=== PATIENT | female | born 1935 | race Caucasian/White ===

== ENCOUNTER 2020-08-05 10:51 | Outpatient (REF) | payer MEDICARE, OTHER, SELFPAY ==
[2020-08-05 14:01] LABS: Hemoglobin 14.9 g/dl (12.0-16.0); Mean Corpuscular HGB Conc 33.1 g/dl (31.0-35.0); Mean Corpuscular Hemoglobin 30.2 pg (27.0-33.0); Mean Corpuscular Volume 91.1 fL (80-98); Mean Platelet Volume 10.3 fL (9.4-12.3); Platelet Count 217 X10*3/uL (160-400); Red Blood Count 4.94 X10*6/uL (4.20-5.50); Red Cell Distribution Width 13.2 % (11.0-16.0); White Blood Count 7.8 X10*3/uL (4.8-10.8)
[2020-08-05 15:05] LABS: Alanine Aminotransferase 22 U/L (0-31); Albumin Level 4.2 g/dL (3.5-5.0); Alkaline Phosphatase 102 U/L (39-117); Anion Gap 14 (12-20); Aspartate Amino Transferase 25 U/L (5-31); Blood Urea Nitrogen 13 mg/dL (9-16); Calcium 9.1 mg/dL (8.4-10.2); Carbon Dioxide 29 mmol/L (22-29); Chloride 99 mmol/L (96-108); Cholesterol 155 mg/dL; Estimated Glomerular Filt Rate > 60; Glucose Fasting 81 mg/dL (60-99); HDL Cholesterol 66 mg/dL; LDL Cholesterol Calculated 80 mg/dl; Potassium 4.4 mmol/L (3.3-5.1); Sodium 138 mmol/L (135-145); Total Protein 6.7 g/dL (6.5-8.0); Triglycerides 45 mg/dL
[2020-08-05 15:25] LABS: TSH reflex Free T4 1.23 uIU/mL (0.32-4.0)
== END 2020-08-05 10:52 | disposition home or self-care (01) ==
LOC: HO.HMGCLDS 10:51
PROVIDERS: PCP Internal Medicine; Visit Provider Internal Medicine
DX: E78.5 Hyperlipidemia, unspecified (principal); I10 Essential (primary) hypertension
CPT/HCPCS: 36415; 80053; 80061; 84443; 85027

== ENCOUNTER → 2021-01-15 14:36 | Outpatient (BNVA) | payer MEDICARE, OTHER, SELFPAY | PROVIDERS: PCP Internal Medicine; Referring Provider Internal Medicine; Visit Provider Surgery | DX: H61.92 Disorder of left external ear, unspecified (principal) | CPT/HCPCS: Q3014 ==

== ENCOUNTER 2021-02-12 09:23 | Outpatient (REF) | payer MEDICARE, OTHER, SELFPAY ==
[2021-02-12 12:04] LABS: Alanine Aminotransferase 19 U/L (0-31); Albumin Level 4.2 g/dL (3.5-5.0); Alkaline Phosphatase 107 U/L (39-117); Anion Gap 12 (12-20); Aspartate Amino Transferase 22 U/L (5-31); Bilirubin Total 0.6 mg/dL (0.0-1.0); Blood Urea Nitrogen 13 mg/dL (9-16); Calcium 9.8 mg/dL (8.4-10.2); Carbon Dioxide 31 mmol/L (22-29); Chloride 98 mmol/L (96-108); Estimated Glomerular Filt Rate > 60; Glucose Random 78 mg/dL (60-115); Potassium 3.9 mmol/L (3.3-5.1); Sodium 137 mmol/L (135-145); Total Protein 6.7 g/dL (6.5-8.0)
== END 2021-02-12 09:24 | disposition home or self-care (01) ==
LOC: HO.HMGCLDS 09:23
PROVIDERS: PCP Internal Medicine; Visit Provider Internal Medicine
DX: E78.5 Hyperlipidemia, unspecified (principal); I10 Essential (primary) hypertension
CPT/HCPCS: 36415; 80053

== ENCOUNTER 2021-02-20 12:38 | Outpatient (REF) | payer MEDICARE, OTHER, SELFPAY ==
[2021-02-20 13:38] VITALS: BP 136/72; PULSE 64; RESP 16; TEMP 36.6; O2SAT 98; BMI 29.2
[2021-02-20 14:00] VITALS: BP 147/62; PULSE 62; RESP 16; O2SAT 98
--- NOTE | 2021-02-20 14:00 | P.OP_ITS ---
Operative Note Operative Note Date of Service: 02/20/21 Narrative: Preop diagnosis: Skin lesion, left earlobe Postop diagnosis: Skin lesion, left earlobe Procedure: Excision of skin lesion, left earlobe under local anesthesia Surgeon: Reinaldo Flowers MD Senior Government Program Analyst: SIVAN Farias student The patient is a 85-year-old female with skin lesion on the left earlobe measuring about 0.6 cm in size, ulcerating, with irregular borders. She wanted proceed with excision. She understood the technique of excision under local anesthesia and was aware of the risks, benefits, and alternatives. She was brought to the minor procedure room and placed supine with the head turned to the right expose the left earlobe. The area of the skin lesion in the left earlobe was prepped and draped. Lidocaine 1% was used for local anesthesia. An elliptical incision was made in the skin surrounding the skin lesion using blade 15. We made sure that there were margins of grossly normal appearing skin around this. This incision was deepened through the entire thickness of the skin all the way to part of the subcutaneous layer to excise this entire lesion. This was sent as specimen. The incision closed with full- thickness nylon 5 0 interrupted sutures. Steri-Strips were applied The patient tolerated procedure well. There were no complications noted. Estimated blood loss was less than 1 cc. The patient was given discharge instructions and will be seen in the office for follow-up for removal sutures.
== END 2021-02-20 12:39 | disposition home or self-care (01) ==
LOC: HO.MS 12:38
PROVIDERS: PCP Internal Medicine; Visit Provider Surgery
PROC: (CPT 11642; principal; 2021-02-20 13:00)
DX: C44.229 Squamous cell carcinoma of skin of left ear and external auricular canal (principal); I10 Essential (primary) hypertension; E78.5 Hyperlipidemia, unspecified; I25.119 Atherosclerotic heart disease of native coronary artery with unspecified angina pectoris; Z98.61 Coronary angioplasty status; Z79.82 Long term (current) use of aspirin; Z79.899 Other long term (current) drug therapy; Z88.0 Allergy status to penicillin
CPT/HCPCS: 11642; 88305; 88342

== ENCOUNTER → 2021-03-03 09:43 | Outpatient (BNVA) | payer MEDICARE, OTHER, SELFPAY | PROVIDERS: PCP Internal Medicine; Referring Provider Internal Medicine; Visit Provider Surgery | DX: Z48.3 Aftercare following surgery for neoplasm (principal); C44.221 Squamous cell carcinoma of skin of unspecified ear and external auricular canal | CPT/HCPCS: 99212 ==

== ENCOUNTER 2022-12-15 08:35 | Outpatient (AMB) | payer MEDICARE, OTHER, SELFPAY ==
--- NOTE | 2022-12-15 08:41 | MHC.PC.OV ---
Vital Signs 12/15/22 08:43 Height 5 ft Weight 145 lb BMI 28.3 BP 130/64 Blood Pressure Location Lt brachial Position Sitting Pulse 62 Pulse Source Pulse Oximeter Pulse Oximetry (%) 95 Oxygen Delivery Method Room Air Intake Visit Reasons: medication Follow Up Intake Note: Pt is here today for a follow up visit. Pt's daughter states that pt has problem with memory. Allergies lisinopril [Zestril] Allergy (Unknown, Verified 12/15/22 08:45) pt does not remember it was 20 years ago Codeine Allergy (Unknown, Uncoded 12/15/22 08:45) pt does not remember Medication List - Last Reconciled 12/15/22 by Yary Whitlock MD aspirin 81 mg PO DAILY atorvastatin 80 mg PO DAILY donepezil 5 mg PO BEDTIME isosorbide dinitrate 30 mg PO ONCE metoprolol succinate ER 100 mg PO DAILY nitroglycerin 0.4 mg sublingual Q5M PRN olmesartan-hydrochlorothiazide 40-25 mg 1 tab PO DAILY Tobacco use date assessed: 12/15/22 Fall risk assessment: No Falls in past year Last assessed Fall Risk: 12/15/22 Dental Screening Dental Screen Date: 12/15/22 Did you have a dental visit in the last 12 months?: No Did you have a dental problem in the last 6 months where you did not have access to dental care?: No Was dental information given to patient?: Patient declined HPI medication Follow Up HPI Details Patient presents for the follow-up on hypertension hyperlipidemia mild dementia. Patient's in August. She lives with her son and granddaughter but is independent , preparing her meals and cleaning the house. 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 Mother No problems noted. Sister No problems noted. Social History Housing: House Alcohol intake: never Patient Tobacco Use Status: Never used Tobacco e-Cigarette/Vaping Use: Never Used Current occupational status: retired Cognitive needs: No Hearing needs: No Vision needs: Yes Questionnaire PHQ-9 Over the last 2 weeks, how often have you been bothered by any of the following problems? 1. Little interest or pleasure in doing things: not at all 2. Feeling down, depressed, or hopeless: not at all 3. Trouble falling or staying asleep, or sleeping too much: nearly every day 4. Feeling tired or having little energy: more than half the days 5. Poor appetite or overeating: not at all 6. Feeling bad about yourself - or that you are a failure or have let yourself or your family down: not at all 7. Trouble concentrating on things, such as reading the newspaper or watching television: not at all 8. Moving or speaking so slowly that other people could have noticed. Or the opposite - being so fidgety or restless that you have been moving around a lot more than usual: not at all 9. Thoughts that you would be better off or of hurting yourself in some way: not at all Total score: 5 Depression Screening Interpretation: Negative Source: Developed by Drs. Reece Argueta, Jennifer Davis, Lee Mcmillan and colleagues, with an educational amberly from [employer]. Thrive Questionnaire Date Thrive assessed: 12/15/22 I am a: Patient What is your living situation today?: I have a steady place to live Within the past 12 months, did the food you bought not last and you didn't have the money to get more?: Never true Within the past 12 months, did you worry whether your food would run out before you got money to buy more?: Never true Do you have trouble paying for medicines?: No Do you have trouble getting transportation to medical appointments?: No Do you have trouble paying your heating and electricity bill?: No Do you have trouble taking care of your child, family member or friend?: No Do you have trouble with day-to-day activities such as bathing, preparing meals, shopping, managing finances, etc.?: No Are you currently unemployed and looking for a job?: No Are you interested in more education?: No Please select the resources that you would like help with: None Currently or been in a relationship where the following occur: no concerns reported AUDIT C Alcohol Use Questionnaire (AUDIT-C) 1. How often do you have a drink containing alcohol?: Never 3. How often do you have six or more drinks on one occasion?: Never Total Score: 0 GRAHAM-7 AMB Questionnaire GRAHAM-7 Date GRAHAM - 7 assessed: 12/15/22 Feeling nervous, anxious, or on edge: 0 = Not at all Not being able to stop or control worryin = Not at all Worrying too much about different things: 0 = Not at all Trouble relaxin = Not at all Being so restless that it is hard to sit still: 0 = Not at all Becoming easily annoyed or irritable: 0 = Not at all Feeling afraid as if something awful might happen: 0 = Not at all Total GRAHAM-7 score (0-4 normal; 5-9 mild; 10-14 moderate; 15-21 severe): 0 Source: Developed by Drs. Reece Argueta, Jennifer Davis, Lee Mcmillan and colleagues, with an educational amberly from [employer]. Review of Systems Const All systems reviewed & are unremarkable except as noted in HPI and below Reports no additional complaints Eyes Reports no additional complaints ENT Reports no additional complaints Card Reports no additional complaints Resp Reports no additional complaints GI Reports no additional complaints Reports no additional complaints Physical exam (Primary Care) Vital Signs: Last Vital Signs Pulse 62 12/15/22 08:43 BP 130/64 12/15/22 08:43 Pulse Ox 95 12/15/22 08:43 Oxygen Delivery Method Room Air 12/15/22 08:43 BMI result Body Mass Index 28.3 Tobacco/Smoking Status: Tobacco use Status Tobacco use date assessed 12/15/22 12/15/22 08:50 Patient Tobacco Use Status Never used Tobacco 12/15/22 08:50 e-Cigarette/Vaping Use Never Used 12/15/22 08:42 PHQ-9: PHQ-9 Score PHQ-9: Total score 5 12/15/22 08:50 Depression Screening Interpretation: Negative Thrive Assessment: Date of Thrive Assessment Date Thrive assessed 12/15/22 12/15/22 08:50 Currently or been in a relationship where the following occur: no concerns reported Const General: no acute distress [facility] General nose exam: Normal external nose present Eyes General: appearance normal, both eyes and all related structures Neck Neck: Yes no lymphadenopathy and Yes supple Resp Effort & Inspection: normal respiratory effort Auscultation: clear to auscultation bilaterally Cardio Rhythm: regular rhythm Heart sounds: S1 normal heart sound present and S2 normal heart sound present GI Inspection: Yes normal to inspection Palpation (GI): Soft to palpation Percussion: Yes normal to percussion Auscultation: normal bowel sounds Assessment and Plan Assessment & Plan (1) Vitamin D deficiency: Code(s): E55.9 - Vitamin D deficiency, unspecified Plan: check the level (2) Coronary artery disease: Comment: s/p stents Code(s): I25.10 - Atherosclerotic heart disease of [place] coronary artery without angina pectoris Plan: cont meds (3) Hyperlipidemia: Code(s): E78.5 - Hyperlipidemia, unspecified Plan: cont statin (4) HTN (hypertension): Code(s): I10 - Essential (primary) hypertension Plan: cont meds (5) Annual physical exam: Code(s): Z00.00 - Encounter for general adult medical examination without abnormal findings (6) Memory deficit: Code(s): R41.3 - Other amnesia Plan: increase Donepezil to 10 mg, f/u 6 months Orders: Orders Comprehensive Met. Panel Today E55.9 - Vitamin D deficiency, unspecified, E78.5 - Hyperlipidemia, unspecified, I10 - Essential (primary) hypertension, I25.10 - Atherosclerotic heart disease of [place] coronary artery without angina pectoris, R41.3 - Other amnesia, Z00.00 - Encounter for general adult medical examination without abnormal findings Lipid Panel Today E55.9 - Vitamin D deficiency, unspecified, E78.5 - Hyperlipidemia, unspecified, I10 - Essential (primary) hypertension, I25.10 - Atherosclerotic heart disease of [place] coronary artery without angina pectoris, R41.3 - Other amnesia, Z00.00 - Encounter for general adult medical examination without abnormal findings Complete Blood Count Auto Diff Today E55.9 - Vitamin D deficiency, unspecified, E78.5 - Hyperlipidemia, unspecified, I10 - Essential (primary) hypertension, I25.10 - Atherosclerotic heart disease of [place] coronary artery without angina pectoris, R41.3 - Other amnesia, Z00.00 - Encounter for general adult medical examination without abnormal findings Vitamin B12 and Folate Today E55.9 - Vitamin D deficiency, unspecified, E78.5 - Hyperlipidemia, unspecified, I10 - Essential (primary) hypertension, I25.10 - Atherosclerotic heart disease of [place] coronary artery without angina pectoris, R41.3 - Other amnesia, Z00.00 - Encounter for general adult medical examination without abnormal findings TSH reflex Free T4 Today E55.9 - Vitamin D deficiency, unspecified, E78.5 - Hyperlipidemia, unspecified, I10 - Essential (primary) hypertension, I25.10 - Atherosclerotic heart disease of [place] coronary artery without angina pectoris, R41.3 - Other amnesia, Z00.00 - Encounter for general adult medical examination without abnormal findings Vitamin D 25-OH Total Today E55.9 - Vitamin D deficiency, unspecified, E78.5 - Hyperlipidemia, unspecified, I10 - Essential (primary) hypertension, I25.10 - Atherosclerotic heart disease of [place] coronary artery without angina pectoris, R41.3 - Other amnesia, Z00.00 - Encounter for general adult medical examination without abnormal findings Medications: New donepezil 10 mg PO BEDTIME 90 tabs 3RF Changed From olmesartan-hydrochlorothiazide 40-25 mg Call to schedule PCP appt for more refills 1 tab PO DAILY 90 tabs 3RF To olmesartan-hydrochlorothiazide 40-25 mg 1 tab PO DAILY 90 tabs 3RF Refilled atorvastatin 80 mg PO DAILY 90 tabs 3RF isosorbide dinitrate allow nitrate-free interval of 12-14 hrs per 24-hr period 30 mg PO ONCE 90 tabs 3RF metoprolol succinate ER 100 mg PO DAILY 90 tabs 3RF I10 - Essential (primary) hypertension Discontinued donepezil Discontinued Reason: Doctor's Order 5 mg PO BEDTIME 90 tabs 3RF Coding Level of Care Code Est Pt Level 4 (10182) Diagnoses Vitamin D deficiency E55.9 Coronary artery disease I25.10 Hyperlipidemia E78.5 HTN (hypertension) I10 Annual physical exam Z00.00 Memory deficit R41.3
[2022-12-15 08:43] VITALS: BP 130/64; PULSE 62; O2SAT 95; BMI 28.3
== END 2022-12-15 09:43 | disposition home or self-care (01) ==
PROVIDERS: PCP Internal Medicine; Visit Provider Internal Medicine
DX: E55.9 Vitamin D deficiency, unspecified (principal); I25.10 Atherosclerotic heart disease of native coronary artery without angina pectoris; E78.5 Hyperlipidemia, unspecified; I10 Essential (primary) hypertension; Z00.00 Encounter for general adult medical examination without abnormal findings; R41.3 Other amnesia
CPT/HCPCS: 99214

== ENCOUNTER 2023-09-24 08:30 | Outpatient (AMB) | payer MEDICARE, OTHER, SELFPAY ==
[2023-09-24 08:37] VITALS: BP 128/66; PULSE 53; O2SAT 98; BMI 25.6
--- NOTE | 2023-09-24 08:37 | MHC.PC.OV ---
Vital Signs 09/24/23 08:37 Height 5 ft Weight 131 lb BMI 25.6 BP 128/66 Blood Pressure Location Lt brachial Position Sitting Pulse 53 Pulse Source Pulse Oximeter Pulse Oximetry (%) 98 Oxygen Delivery Method Room Air Intake Visit Reasons: PE Intake Note: Pt is here today for PE. Allergies lisinopril [Zestril] Allergy (Unknown, Verified 09/24/23 08:39) pt does not remember it was 20 years ago Codeine Allergy (Unknown, Uncoded 09/24/23 08:39) pt does not remember Medication List - Last Reconciled 09/24/23 by Yary Whitlock MD aspirin 81 mg PO DAILY atorvastatin 80 mg PO DAILY donepezil 10 mg PO BEDTIME isosorbide dinitrate 30 mg PO ONCE metoprolol succinate ER 100 mg PO DAILY nitroglycerin 0.4 mg sublingual Q5M PRN olmesartan-hydrochlorothiazide 40-25 mg 1 tab PO DAILY Tobacco use date assessed: 09/24/23 Fall risk assessment: 1 Fall in past year Last assessed Fall Risk: 09/24/23 Dental Screening Dental Screen Date: 09/24/23 Did you have a dental visit in the last 12 months?: No Did you have a dental problem in the last 6 months where you did not have access to dental care?: No Was dental information given to patient?: Patient declined HPI PE HPI Details PATIENT PRESENTS FOR A PHYSICAL. Hypertension hyperlipidemia controlled on current medications. According to patient's daughter she is becoming more forgetful. She lives with her son. 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 Mother No problems noted. Sister No problems noted. Social History (Reviewed 09/24/23 @ 08:42 by STEVE [place] Housing: House Alcohol intake: never Patient Tobacco Use Status: Never used Tobacco e-Cigarette/Vaping Use: Never Used service: No Current occupational status: retired Cognitive needs: No Hearing needs: No Vision needs: Yes Questionnaire PHQ-9 Over the last 2 weeks, how often have you been bothered by any of the following problems? 1. Little interest or pleasure in doing things: not at all 2. Feeling down, depressed, or hopeless: not at all 3. Trouble falling or staying asleep, or sleeping too much: several days 4. Feeling tired or having little energy: more than half the days 5. Poor appetite or overeating: not at all 6. Feeling bad about yourself - or that you are a failure or have let yourself or your family down: not at all 7. Trouble concentrating on things, such as reading the newspaper or watching television: nearly every day 8. Moving or speaking so slowly that other people could have noticed. Or the opposite - being so fidgety or restless that you have been moving around a lot more than usual: not at all 9. Thoughts that you would be better off or of hurting yourself in some way: not at all Total score: 6 Depression Screening Interpretation: Negative Depression Screening Done: Yes Source: Developed by Drs. Reece Argueta, Jennifer Davis, Lee Mcmillan and colleagues, with an educational amberly from [employer]. Thrive Questionnaire Date Thrive assessed: 09/24/23 I am a: Parent/Caregiver What is your living situation today?: I have a steady place to live Within the past 12 months, did the food you bought not last and you didn't have the money to get more?: Never true Within the past 12 months, did you worry whether your food would run out before you got money to buy more?: Never true Do you have trouble paying for medicines?: No Do you have trouble getting transportation to medical appointments?: No Do you have trouble paying your heating and electricity bill?: No Do you have trouble taking care of your child, family member or friend?: No Do you have trouble with day-to-day activities such as bathing, preparing meals, shopping, managing finances, etc.?: Yes Are you currently unemployed and looking for a job?: No Are you interested in more education?: No Please select the resources that you would like help with: Daily support THRIVE Score: 0 AUDIT C Alcohol Use Questionnaire (AUDIT-C) 1. How often do you have a drink containing alcohol?: Never 3. How often do you have six or more drinks on one occasion?: Never Total Score: 0 GRAHAM-7 AMB Questionnaire GRAHAM-7 Date GRAHAM - 7 assessed: 09/24/23 Feeling nervous, anxious, or on edge: 0 = Not at all Not being able to stop or control worryin = Not at all Worrying too much about different things: 1 = Several days Trouble relaxin = Not at all Being so restless that it is hard to sit still: 0 = Not at all Becoming easily annoyed or irritable: 0 = Not at all Feeling afraid as if something awful might happen: 0 = Not at all Total GRAHAM-7 score (0-4 normal; 5-9 mild; 10-14 moderate; 15-21 severe): 1 Source: Developed by Drs. Reece Argueta, Jennifer Davis, Lee Mcmillan and colleagues, with an educational amberly from [employer]. Review of Systems Const All systems reviewed & are unremarkable except as noted in HPI and below Reports no additional complaints Eyes Reports no additional complaints ENT Reports no additional complaints Card Reports no additional complaints Resp Reports no additional complaints GI Reports no additional complaints Physical exam (Primary Care) Vital Signs: Last Vital Signs Pulse 53 09/24/23 08:37 BP 128/66 09/24/23 08:37 Pulse Ox 98 09/24/23 08:37 Oxygen Delivery Method Room Air 09/24/23 08:37 BMI result Body Mass Index 25.6 Tobacco/Smoking Status: Tobacco use Status Tobacco use date assessed 09/24/23 09/24/23 08:43 Patient Tobacco Use Status Never used Tobacco 09/24/23 08:43 e-Cigarette/Vaping Use Never Used 09/24/23 08:43 PHQ-9: PHQ-9 Score PHQ-9: Total score 6 09/24/23 08:46 Depression Screening Interpretation: Negative Thrive Assessment: Date of Thrive Assessment Date Thrive assessed 09/24/23 09/24/23 08:46 Const General: no acute distress HENMT Head: Yes normal to inspection Ears: hearing grossly normal bilaterally Face and sinus: Yes normal facial exam Eyes General: appearance normal, both eyes and all related structures Neck Neck: Yes no lymphadenopathy and Yes supple Resp Effort & Inspection: normal respiratory effort Auscultation: clear to auscultation bilaterally Cardio Rhythm: regular rhythm Heart sounds: S1 normal heart sound present and S2 normal heart sound present GI Inspection: Yes normal to inspection Palpation (GI): Soft to palpation Percussion: Yes normal to percussion Auscultation: normal bowel sounds Assessment and Plan Assessment & Plan (1) Hyperlipidemia: Code(s): E78.5 - Hyperlipidemia, unspecified Plan: Continue Lipitor (2) HTN (hypertension): Code(s): I10 - Essential (primary) hypertension Plan: Continue current medications (3) Vitamin D deficiency: Code(s): E55.9 - Vitamin D deficiency, unspecified Plan: Continue vitamin-D supplement and check the level (4) Vitamin B 12 deficiency: Code(s): E53.8 - Deficiency of other specified B group vitamins Plan: Check vitamin B12 level (5) Memory deficit: Code(s): R41.3 - Other amnesia Plan: Continue donepezil check TSH level Orders: Orders Comprehensive Met. Panel Today E53.8 - Deficiency of other specified B group vitamins, E55.9 - Vitamin D deficiency, unspecified, E78.5 - Hyperlipidemia, unspecified, I10 - Essential (primary) hypertension Vitamin B12 Today E53.8 - Deficiency of other specified B group vitamins, E55.9 - Vitamin D deficiency, unspecified Complete Blood Count Auto Diff Today E53.8 - Deficiency of other specified B group vitamins, E55.9 - Vitamin D deficiency, unspecified, E78.5 - Hyperlipidemia, unspecified, I10 - Essential (primary) hypertension Vitamin D 25-OH Total Today E53.8 - Deficiency of other specified B group vitamins, E55.9 - Vitamin D deficiency, unspecified TSH reflex Free T4 Today R41.3 - Other amnesia Medications: Refilled donepezil 10 mg PO BEDTIME 90 tabs 3RF metoprolol succinate ER 100 mg PO DAILY 90 tabs 3RF I10 - Essential (primary) hypertension atorvastatin 80 mg PO DAILY 90 tabs 3RF olmesartan-hydrochlorothiazide 40-25 mg 1 tab PO DAILY 90 tabs 3RF Discontinued isosorbide dinitrate allow nitrate-free interval of 12-14 hrs per 24-hr period Discontinued Reason: Doctor's Order 30 mg PO ONCE 90 tabs 3RF Coding Level of Care Code New Pt Prev Care >65yr (88333) Diagnoses Hyperlipidemia E78.5 HTN (hypertension) I10 Vitamin D deficiency E55.9 Vitamin B 12 deficiency E53.8 Memory deficit R41.3
== END 2023-09-24 09:13 | disposition home or self-care (01) ==
PROVIDERS: PCP Internal Medicine; Visit Provider Internal Medicine
DX: E78.5 Hyperlipidemia, unspecified (principal); I10 Essential (primary) hypertension; E55.9 Vitamin D deficiency, unspecified; E53.8 Deficiency of other specified B group vitamins; R41.3 Other amnesia
CPT/HCPCS: 99214

== ENCOUNTER 2024-03-14 14:05 | Outpatient (AMB) | payer MEDICARE, OTHER, SELFPAY ==
[2024-03-14 14:10] VITALS: BP 126/74; PULSE 58; O2SAT 98; BMI 25.0
--- NOTE | 2024-03-14 14:10 | MHC.PC.OV ---
Vital Signs 03/14/24 14:10 Height 5 ft Weight 128 lb BMI 25.0 BP 126/74 Blood Pressure Location Rt brachial Position Sitting Pulse 58 Pulse Source Pulse Oximeter Pulse Oximetry (%) 98 Oxygen Delivery Method Room Air Intake Visit Reasons: Discharge follow up visit Intake Note: Pt is here today for a Hospital follow up visit. Allergies lisinopril [Zestril] Allergy (Unknown, Verified 03/14/24 14:16) pt does not remember it was 20 years ago Codeine Allergy (Unknown, Uncoded 03/14/24 14:16) pt does not remember Medication List - Last Reconciled 03/14/24 by Yary Whitlock MD acetaminophen 325 mg PO TID PRN ascorbic acid (vitamin C) mg PO aspirin 81 mg PO DAILY atorvastatin 80 mg PO DAILY docusate sodium 100 mg PO DAILY donepezil 10 mg PO BEDTIME melatonin 3 mg PO BEDTIME PRN metoprolol tartrate 25 mg PO TID pwduviswdost-Rt-alcz-minerals tabs PO nitroglycerin 0.4 mg sublingual Q5M PRN thiamine HCl (vitamin B1) 100 mg PO DAILY trazodone 50 mg PO DAILY vitamin A palmitate 3,000 mcg PO DAILY zinc sulfate 50 mg PO DAILY Tobacco use date assessed: 03/14/24 Fall risk assessment: 2 + Falls in past year Last assessed Fall Risk: 03/14/24 Dental Screening Dental Screen Date: 09/24/23 HPI Discharge follow up visit HPI Details Patient presents for follow-up of discharge from [facility] She fell at home, broke her right hip, underwent right hip ORIF on January. Patient was discharged to inpatient rehab where she developed new onset AFib with rapid ventricular rate and demand ischemia with elevated troponin. At [facility] decision was made to treat patient medically. she converted to normal sinus rhythm and because of fragility was felt to be a candidate for long-term anticoagulation. Patient was discharged home 2 days ago.She is ambulating with a walker living with her son who is her main caregiver. Patient denies palpitations chest pain shortness or breath she reports good appetite. 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 Mother No problems noted. Sister No problems noted. Social History Housing: House Alcohol intake: never Patient Tobacco Use Status: Never used Tobacco e-Cigarette/Vaping Use: Never Used service: No Current occupational status: retired Cognitive needs: No Hearing needs: No Vision needs: Yes Questionnaire Thrive Questionnaire Date Thrive assessed: 09/24/23 GRAHAM-7 AMB Questionnaire GRAHAM-7 Date GRAHAM - 7 assessed: 09/24/23 Source: Developed by Drs. Reece Argueta, Jennifer Davis, Lee Mcmillan and colleagues, with an educational amberly from [employer] Review of Systems Const All systems reviewed & are unremarkable except as noted in HPI and below ENT Reports no additional complaints Card Reports no additional complaints Resp Reports no additional complaints GI Reports no additional complaints Reports no additional complaints Physical exam (Primary Care) Vital Signs: Last Vital Signs Pulse 58 03/14/24 14:10 BP 126/74 03/14/24 14:10 Pulse Ox 98 03/14/24 14:10 Oxygen Delivery Method Room Air 03/14/24 14:10 BMI result Body Mass Index 25.0 Tobacco/Smoking Status: Tobacco use Status Tobacco use date assessed 03/14/24 03/14/24 14:28 Patient Tobacco Use Status Never used Tobacco 03/14/24 14:28 e-Cigarette/Vaping Use Never Used 03/14/24 14:28 Thrive Assessment: Date of Thrive Assessment Date Thrive assessed 09/24/23 03/14/24 14:28 Const General: no acute distress HENMT Head: Yes normal to inspection Throat: Yes posterior oropharynx normal Resp Effort & Inspection: normal respiratory effort Auscultation: clear to auscultation bilaterally Cardio Rhythm: regular rhythm Heart sounds: S1 normal heart sound present and S2 normal heart sound present GI Inspection: Yes normal to inspection Palpation (GI): Soft to palpation Percussion: Yes normal to percussion Auscultation: normal bowel sounds Coding Level of Care Code Est Pt Level 4 (86393) Complex EM visit Add On G2211 Diagnoses Memory deficit R41.3 Closed right hip fracture S72.001A Afib I48.91 NSTEMI (non-ST elevated myocardial infarction) I21.4 Assessment & Plan Assessment & Plan (1) Memory deficit: Comment: On donepezil Code(s): R41.3 - Other amnesia Category: Medical Plan: Continue donepezil (2) Closed right hip fracture: Comment: s/p ORIF 02/10/2024 at [facility] Code(s): S72.001A - Fracture of unspecified part of neck of right femur, initial encounter for closed fracture Category: Medical Plan: Continue home physical therapy (3) Afib: Comment: 02/2024 converted , on metoprolol not anticoagulated due to high risk of falling Code(s): I48.91 - Unspecified atrial fibrillation Category: Medical Plan: Continue metoprolol and 81 mg a fasting (4) NSTEMI (non-ST elevated myocardial infarction): Comment: 02/17/2024, hospitalized at [facility] medically managed, Code(s): I21.4 - Non-ST elevation (NSTEMI) myocardial infarction Category: Medical Plan: Continue statin, beta asim and aspirin Medications: New aspirin 81 mg PO DAILY 90 tabs 1RF trazodone 50 mg PO DAILY 90 tabs 1RF metoprolol tartrate 37.5 mg PO BID Refilled donepezil 10 mg PO BEDTIME 90 tabs 3RF atorvastatin 80 mg PO DAILY 90 tabs 3RF
== END 2024-03-14 15:04 | disposition home or self-care (01) ==
PROVIDERS: PCP Internal Medicine; Visit Provider Internal Medicine
DX: R41.3 Other amnesia (principal); S72.001A Fracture of unspecified part of neck of right femur, initial encounter for closed fracture; I48.91 Unspecified atrial fibrillation; I21.4 Non-ST elevation (NSTEMI) myocardial infarction

== ENCOUNTER → 2024-03-14 14:05 | Outpatient (BNVA) | payer MEDICARE, OTHER, SELFPAY | PROVIDERS: PCP Internal Medicine; Visit Provider Internal Medicine | DX: R41.3 Other amnesia (principal); S72.001A Fracture of unspecified part of neck of right femur, initial encounter for closed fracture; I48.91 Unspecified atrial fibrillation; I21.4 Non-ST elevation (NSTEMI) myocardial infarction | CPT/HCPCS: 99212 ==

== ENCOUNTER 2024-04-13 09:52 | Outpatient (REF) | payer MEDICARE, OTHER, SELFPAY ==
[2024-04-13 13:20] LABS: MANUAL DIFF FLAG NO
[2024-04-13 13:28] LABS: Basophils Absolute Auto 0.1 X10*3/uL (0.0-0.2); Basophils Percent Auto 0.7 % (0-2); Eosinophils Percent Auto 0.6 % (0-4); Hematocrit 40.5 % (37.0-47.0); Hemoglobin 13.1 g/dl (12.0-16.0); Imm Gran Abs Auto 0.02 X10*3/uL (0.00-0.03); Imm Gran Pct Auto 0.3 % (0.0-0.4); Lymphocytes Percent Auto 13.7 % (20-40); Mean Corpuscular HGB Conc 32.3 g/dl (31.0-35.0); Mean Corpuscular Hemoglobin 30.6 pg (27.0-33.0); Mean Corpuscular Volume 94.6 fL (80.0-98.0); Mean Platelet Volume 9.3 fL (9.4-12.3); Monocytes Absolute Auto 0.5 X10*3/uL (0.1-1.2); Monocytes Percent Auto 7.4 % (2-11); Neutrophils Absolute Auto 5.6 x10*3/uL (2.0-8.3); Neutrophils Percent Auto 77.3 % (45-73); Platelet Count 220 X10*3/uL (160-400); Red Blood Count 4.28 X10*6/uL (4.20-5.50); Red Cell Distribution Width 13.5 % (11.0-16.0); White Blood Count 7.2 X10*3/uL (4.8-10.8)
[2024-04-13 13:53] LABS: Appearance Urine Cloudy; Color Urine Yellow; Glucose Urine UA Negative (Negative); Leukocyte Esterase Urine Large (3+) (Negative); Nitrite Urine Negative (Negative); Specific Gravity - Urine 1.015 (1.005-1.025); UMIC TRIGGER UA YES; Urine Blood Small (1+) (Negative); Urine Ketones Negative (Negative); Urine Protein Negative (Neg-Trace)
[2024-04-13 13:58] LABS: Bacteria Urine 4+ (None Seen); Hyaline Casts Urine 0-2 /LPF (0-2); Squamous Epithelial Cell Urine >20 /HPF (0-2); WBC Urine >50 /HPF (0-5)
[2024-04-13 14:05] LABS: Alanine Aminotransferase 14 U/L (0-31); Albumin Level 3.8 g/dL (3.5-5.0); Alkaline Phosphatase 100 U/L (39-117); Anion Gap 13 (12-20); Aspartate Amino Transferase 26 U/L (5-31); Bilirubin Total 0.4 mg/dL (0.0-1.0); Blood Urea Nitrogen 11 mg/dL (9-16); Carbon Dioxide 30 mmol/L (22-29); Chloride 101 mmol/L (96-108); Estimated Glomerular Filt Rate > 60; Glucose Random 126 mg/dL (60-115); Potassium 4.6 mmol/L (3.3-5.1); Sodium 139 mmol/L (135-145); TSH reflex Free T4 1.27 uIU/mL (0.32-4.0); Total Protein 6.7 g/dL (6.5-8.0)
[2024-04-13 14:08] LABS: Vitamin B12 421 pg/mL (200-900)
== END 2024-04-13 09:53 | disposition home or self-care (01) ==
LOC: HO.HMGCLDS 09:52
PROVIDERS: PCP Internal Medicine; Visit Provider Internal Medicine
DX: E78.5 Hyperlipidemia, unspecified (principal); I10 Essential (primary) hypertension; E55.9 Vitamin D deficiency, unspecified; E53.8 Deficiency of other specified B group vitamins; R41.3 Other amnesia; R30.0 Dysuria
CPT/HCPCS: 36415; 80053; 81001; 82306; 82607; 84443; 85025; 87086

== ENCOUNTER 2024-06-23 10:10 | Outpatient (REF) | payer MEDICARE, OTHER, SELFPAY ==
--- OUTSIDE RECORDS SUMMARY | 2024-06-23 11:38 | XMS_ITS | Clinical Summary ---
Author Organization [facility] Address [address] [place] [address] Care Team Providers Care River Expedition Guide Name Role Phone Yary Whitlock MD Primary Care Provider Allergies Active Allergy Reactions Criticality Noted Date Comments Codeine 03/02/2024 Lisinopril 03/02/2024 Medications donepezil ODT (ARICEPT ODT) 10 mg dispersible tablet Take 1 tablet (10 mg total) by mouth at bedtime. Active aspirin 81 mg EC tabletIndication s:Decrease CVA risk Take 1 tablet (81 mg total) by mouth 2 (two) times a day. 60 each 03/07/2024 Active atorvastatin (LIPITOR) 80 mg tablet Take 1 tablet (80 mg total) by mouth at bedtime. 30 each 03/07/2024 03/07/20 25 Active ascorbic acid (VITAMIN C) 500 mg tablet Take 1 tablet (500 mg total) by mouth 2 (two) times a day. 60 each 03/07/2024 03/07/20 25 Active metoprolol tartrate (LOPRESSOR) 25 mg tablet Take 1 tablet (25 mg total) by mouth every 8 (eight) hours. 90 each 03/07/2024 Active multivitamin minerals-iron (THERA-M) 9 mg iron-400 mcg tablet Take 1 tablet by mouth 1 (one) time each day. 30 tablet 03/08/2024 Active traZODone (DESYREL) 50 mg tablet Take 1 tablet (50 mg total) by mouth at bedtime. 30 each 03/07/2024 Active vitamin A 3,000 mcg (10,000 unit) capsule Take 1 capsule (10,000 Units total) by mouth 1 (one) time each day. 30 capsule 11 03/08/2024 03/08/20 25 Active zinc sulfate (ZINCATE) 220 mg (50 mg elemental zinc) capsule Take 1 capsule (220 mg total) by mouth 1 (one) time each day. 30 each 11 03/08/2024 03/08/20 25 Active Active Problems Problem Noted Date Diagnosed Date Leukocytosis (leucocytosis) 03/04/2024 Unwitnessed fall 03/04/2024 CAD (coronary artery disease) 03/04/2024 NSTEMI (non-ST elevated myocardial infarction) 1 05/04/2023 Orthostatic hypotension 03/04/2024 Assessment & Plan (03/04/2024 12:18 PM EDT): Push clears avoid midodrine for now medications adjusted Dementia 03/04/2024 Anemia 03/04/2024 Assessment & Plan (03/04/2024 12:19 PM EDT): Current treatment plan Atrial fibrillation with RVR 03/04/2024 Assessment & Plan (03/04/2024 12:20 PM EDT): Continue current treatment plan Hip fracture, right 03/02/2024 Encounters Date Type Department Care Team Description 05/11/2024 7:39 AM EST - 05/11/2024 11:59 PM EST Hospital Encounter [facility] Ortho Xray [address] [place] [address] Discharge Disposition: Home or Self Care 03/23/2024 7:51 AM EST - 03/23/2024 11:59 PM [facility] Hospital Encounter [facility] Ortho Xray [address] [place] [address] Pain Discharge Disposition: Home or Self Care from Last 3 Months Social History Tobacco Use Types Packs/Day Years Used Date Smoking Tobacco: Never Assessed Health Literacy Answer Date Recorded How often [...] from th ose around you? Never 03/07/2024 Comments Unknown Sex and Gender Information Value Date Recorded Sex Assigned at Not on file Legal Sex Female 6:33 PM EDT Gender Identity Not on file Sexual Orientation Not on file Obstetrics History Last Filed Vital Signs Vital Sign Reading Time Taken Comments Blood Pressure 141/78 03/08/2024 8:55 AM EST Pulse 61 03/08/2024 8:55 AM EST Temperature 36.8 ??C (98.2 ??F) 03/08/2024 8:55 AM ES T Respiratory Rate 16 03/08/2024 8:55 AM EST Oxygen Saturation 98% 03/08/2024 8:55 AM EST Inhaled Oxygen Concentration - - Weight 64 kg (141 lb 3.2 oz) 03/05/2024 5:30 AM EST Height 157.5 cm (5' 2 ) 03/02/2024 1:40 PM EDT Body Mass Index 25.83 03/02/2024 1:40 PM EDT Plan of Treatment Health Maintenance Due Date Last Done Comments DTaP,Tdap,and Td Vaccines (1 - Tdap) 10/12/1954 Pneumococcal Vaccine: 50+ Years (1 of 1 - PCV) 1986 Zoster Vaccines (1 of 2) 1986 RSV Immunization Patients 60+ Years Old (1 - 1-dose 75+ series) 10/12/2011 COVID-19 Vaccine ( season) 2024 03/24/2021, 09/13/2020, 08/23/2020 Cholesterol Screening (Lipid Panel) 02/17/2024 Medicare Annual Wellness Visit 02/17/2024 Osteoporosis Screening (Bone Density Screening) 02/17/2024 Hypertension/CHF/CAD Annual BMP Blood Test 03/05/2025 03/05/2024 Depression Screening 03/07/2025 03/07/2024 Social Influencers of Health Screening 03/07/2025 03/07/2024 Falls Risk Assessment 03/08/2025 03/08/2024 Influenza Vaccine Completed 02/18/2024, , 02/27/2018, Additional history exists HIB Vaccines Aged Out No longer eligi ble based on patient's age to complete this topic HPV Vaccines Aged Out No longer eligi ble based on patient's age to complete this topic Hepatitis A Vaccines Aged Out No long er eligible based on patient's age to complete this topic Hepatitis B Vaccines Aged Out No long er eligible based on patient's age to complete this topic IPV Vaccines Aged Out No longer eligi ble based on patient's age to complete this topic MMR Vaccines Aged Out No longer eligi ble based on patient's age to complete this topic Meningococcal ACWY Vaccine Aged Out N o longer eligible based on patient's age to complete this topic Meningococcal B Vacine Aged Out No lo nger eligible based on patient's age to complete this topic RSV Immunization Patients Under 20 months Aged Out No longer eligible based on patient's age to complete this topic Varicella Vaccines Aged Out No longer eligible based on patient's age to complete this topic Procedures Procedure Name Priority Date/Time Associated Diagnosis Comments XR FEMUR 2+ VIEWS RIGHT Routine 05/11/2024 8:33 AM EST Pain XR FEMUR 2+ VIEWS RIGHT Routine 03/23/2024 10:19 AM EST Pain BASIC METABOLIC PANEL Routine 03/05/2024 5:29 AM EST from Last 3 Months or Most Recently Relevant to Health Maintenance Results * XR Femur 2+ Views Right (05/11/2024 8:33 AM EST) Only the most recent of2 resultswithin the time period is included. Narrative RIS PACS/VR - 05/11/2024 8:40 AM EST This order has been auto-finalized and does not contain a result. us Grace Cervantes MD IMG XR PROCEDURES Final Result RIS PACS/VR * (ABNORMAL) Basic metabolic panel (03/05/2024 5:29 AM EST) Sodium 137 133 - 145 mmol/L LAB CHEMISTRY METHOD 03/05/2024 7:25 AM [facility] Potassium 4.0 3.5 - 5.5 mmol/L LAB CHEMISTRY METHOD 03/05/2024 7:25 AM [facility] Chloride 104 96 - 110 mmol/L LAB CHEMISTRY METHOD 03/05/2024 7:25 AM [facility] CO2 26 21 - 32 mmol/L LAB CHEMISTRY METHOD 03/05/2024 7:25 AM [facility] Anion Gap 7 3 - 11 LAB CHEMISTRY METHOD 03/05/2024 7:25 AM [facility] Glucose 82 70 - 100 mg/dL LAB CHEMISTRY METHOD 03/05/2024 7:25 AM [facility] BUN 10 5 - 25 mg/dL LAB CHEMISTRY METHOD 03/05/2024 7:25 AM [facility] Creatinine 0.43(L) 0.50 - 1.10 mg/dL LAB CHEMISTRY METHOD 03/05/2024 7:25 AM [facility] eGFR 94 >=60 mL/min/1. 73m2 LAB CHEMISTRY METHOD 03/05/2024 7:25 AM [facility] Comment:Calculation based on the??Chronic Kidney Disease Epidemiology Collaboration (CKD-EPI) equation refit??without adjustment for race. 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 Advance Directives and Living Will 03/16/2024 2:33 PM Health Care Decision (hx) 02/25/2024 AD ARMAS DIRECTIVE Health Care Decision (hx) 02/15/2024 HE ALTH CARE PROXY Health Care Decision (hx) 02/15/2024 AD ARMAS DIRECTIVE Health Care Decision (hx) 02/15/2024 HE ALTH CARE PROXY Health Care Decision (hx) 02/15/2024 HE ALTH CARE PROXY Health Care Decision (hx) 02/15/2024 HE ALTH CARE PROXY * Full Code (Latest Code Status on File) Date Activated Date Inactivated Comments 03/02/2024 2:15 PM 03/08/2024 2:03 PM Cutover ord er - Refer to legacy medical record for details and original code status order details. Care Teams River Expedition Guide Relationship Specialty Start Date End Date Yary Whitlock MD [address] [place] [address] PCP - General Internal Medicine 03/02/24
--- OUTSIDE RECORDS SUMMARY | 2024-06-23 11:38 | XMS_ITS | Encounter Summary ---
Author Organization [facility] Address [address] [place] [address] Care Team Providers Care Tripoler Name Role Phone Unavailable Primary Care Provider Unavailabl e Encounter Details Date Type Department Care Team (Late st Contact Info) Description 02/24/2024 7:35 AM EDT Hospital Encounter [facility]ORIC ENCOUNTERS [facility] CONVERSION ONLY Grace Cervantes MD [address] [place] [phone] Social History Tobacco Use Types Packs/Day Years [...] on file Sexual Orientation Not on file documented as of this encounter Plan of Treatment Not on file documented as of this encounter Visit Diagnoses Not on filedocumented in this encounter
[2024-06-23 13:12] LABS: Appearance Urine Turbid; Color Urine Yellow; Glucose Urine UA Negative (Negative); Leukocyte Esterase Urine Small (1+) (Negative); Nitrite Urine Negative (Negative); PH 7.5 (5.0-9.0); UMIC TRIGGER UACC YES; Urine Blood Small (1+) (Negative); Urine Ketones 15 mg/dL (Negative); Urine Protein Trace mg/dL (Neg-Trace)
[2024-06-23 13:24] LABS: Bacteria Urine None Seen (None Seen); Hyaline Casts Urine 0-2 /LPF (0-2); UACC Culture Trigger YES
== END 2024-06-23 10:11 | disposition home or self-care (01) ==
LOC: HO.HMGCLNP 10:10
PROVIDERS: PCP Internal Medicine; Visit Provider Internal Medicine
DX: R35.0 Frequency of micturition (principal)
CPT/HCPCS: 81001; 87086

== ENCOUNTER 2024-09-13 12:00 | Outpatient (REF) | payer MEDICARE, OTHER, SELFPAY ==
--- OUTSIDE RECORDS SUMMARY | 2024-09-13 12:53 | XMS_ITS | Encounter Summary ---
Author Organization [facility] Address [address] [place] [address] Care Team Providers Care Patrol Sergeant Name Role Phone Unavailable Primary Care Provider Unavailabl e Encounter Details Date Type Department Care Team (Late st Contact Info) Description 02/24/2024 7:35 AM EDT Hospital Encounter TH HISTORIC ENCOUNTERS [facility] CONVERSION ONLY Grace Cervantes MD [address] [place] [phone] Social History Tobacco Use Types Packs/Day Years [...]
--- OUTSIDE RECORDS SUMMARY | 2024-09-13 12:53 | XMS_ITS | Clinical Summary ---
Author Organization [facility] Address [address] [place] [address] Care Team Providers Care Pizza Delivery Driver Name Role Phone Yary Whitlock MD Primary Care Provider [phone] Allergies Active Allergy Reactions Criticality Noted Date [...] (coronary artery disease) 03/04/2024 NSTEMI (non-ST elevated myoc ardial infarction) ([facility] [place], [facility] V28) 03/04/2024 Orthostatic hypotension 03/04/2024 Assessment & Plan (03/04/2024 12:18 PM EDT): Push clears avoid midodrine for now medications adjusted Dementia ([facility] V24, [facility] V28) 03/04/2024 Anemia 03/04/2024 Assessment & Plan (03/04/2024 12:19 PM EDT): Current treatment plan Atrial fibrillation with RVR ([facility] V24, [facility] V28) 03/04/2024 Assessment & Plan (03/04/2024 12:20 PM EDT): Continue current treatment plan Hip fracture, right ([facility] V24, [facility] V28) 1 Social History Tobacco Use Types Packs/Day Years [...] Vaccines (1 of 2) 1986 RSV Immunization Adult Patients (1 - 1-dose 75+ series) 10/12/2011 COVID-19 Vaccine ( - season) 2024 03/24/2021, 09/13/2020, 08/23/2020 Cholesterol Screening [...] age to complete this topic Meningococcal B Vaccine Aged Out No l onger eligible based on patient's age to complete this topic RSV Immunization Patients Under 20 months Aged Out No longer eligible based on patient's age to complete this topic Varicella Vaccines Aged Out No longer eligible based on patient's age to complete this topic Procedures Procedure Name Priority Date/Time Associated Diagnosis Comments BASIC METABOLIC PANEL Routine 03/05/2024 5:29 AM EST from Last 3 Months or Most Recently Relevant to Health Maintenance Results * (ABNORMAL) Basic metabolic panel (03/05/2024 5:29 AM EST) Sodium 137 133 - 145 mmol/L LAB CHEMISTRY METHOD 03/05/2024 7:25 AM [facility] Potassium 4.0 3.5 - 5.5 mmol/L LAB CHEMISTRY METHOD 03/05/2024 7:25 AM [facility] Chloride 104 96 - 110 mmol/L LAB CHEMISTRY METHOD 03/05/2024 7:25 AM [facility] CO2 26 21 - 32 mmol/L LAB CHEMISTRY METHOD 03/05/2024 7:25 AM [facility] Anion Gap 7 3 - 11 LAB CHEMISTRY METHOD 03/05/2024 7:25 AM [facility] Glucose 82 70 - 100 mg/dL LAB CHEMISTRY METHOD 03/05/2024 7:25 AM [facility] BUN 10 5 - 25 mg/dL LAB CHEMISTRY METHOD 03/05/2024 7:25 AM [facility] Creatinine 0.43(L) 0.50 - 1.10 mg/dL LAB CHEMISTRY METHOD 03/05/2024 7:25 AM EST [facility] eGFR 94 >=60 mL/min/1. 73m2 LAB CHEMISTRY METHOD 03/05/2024 7:25 AM EST [facility] Comment:Calculation based on the??Chronic Kidney Disease Epidemiology Collaboration (CKD-EPI) equation refit??without adjustment for race. BUN/Creatinine Ratio 23.3 LAB CHEMISTRY METHOD 03/05/2024 7:25 AM EST [facility] Calcium 8.7 8.5 - 10.5 mg/dL LAB CHEMISTRY METHOD 03/05/2024 7:25 AM EST [facility] Blood Venous blood specimen / Unknown Venipuncture / Unknown 03/05/2024 5:29 AM EST 03/05/2024 6:11 AM EST Renetta Marie NP LAB BLOOD ORDERABLES Final Result [facility]) [facility] [address] [place] [address], from Last 3 Months or Most Recently Relevant to Health Maintenance Insurance MEDICARE [facility] Advance Directives Documents on File Type Date Recorded 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 Care Teams Pizza Delivery Driver Relationship Specialty Start Date End Date Yary Wihtlock MD [address] [place] [address] PCP - General Internal Medicine 03/02/24
[2024-09-13 14:03] LABS: Appearance Urine Clear; Color Urine Yellow; Glucose Urine UA Negative (Negative); Leukocyte Esterase Urine Trace (Negative); Nitrite Urine Negative (Negative); UMIC TRIGGER UACC YES; Urine Blood Small (1+) (Negative); Urine Ketones Negative (Negative); Urine Protein Negative (Neg-Trace)
[2024-09-13 14:18] LABS: Bacteria Urine None Seen (None Seen); Hyaline Casts Urine 0-2 /LPF (0-2); RBC Urine 0-2 /HPF (0-2); Squamous Epithelial Cell Urine 0-2 /HPF (0-2); WBC Urine 0-5 /HPF (0-5)
== END 2024-09-13 12:01 | disposition home or self-care (01) ==
LOC: HO.HMGCLNP 12:00
PROVIDERS: PCP Internal Medicine; Visit Provider Internal Medicine
DX: R35.0 Frequency of micturition (principal)
CPT/HCPCS: 81001; 81003

== ENCOUNTER 2025-01-30 13:14 | Outpatient (AMB) | payer MEDICARE, SELFPAY ==
--- OUTSIDE RECORDS SUMMARY | 2024-02-24 07:35 | XMS_ITS | Encounter Summary ---
Author Organization [facility] Address [address] [place] [address] Care Team Providers Care Preparation Supervisor Freezing Name Role Phone Unavailable Primary Care Provider Unavailabl e Encounter Details Date Type Department Care Team (Late st Contact Info) Description 02/24/2024 7:35 AM EDT Hospital Encounter TH HISTORIC ENCOUNTERS [facility] CONVERSION ONLY Grace Cervantes MD [address] [place] [address] Social History Tobacco Use Types Packs/Day Years Used Date Smoking Tobacco: Never Smokeless Tobacco: Never Alcohol Use Standard Drinks/Week Comments Never 0 (1 standard drink = 0.6 oz pur e alcohol) Health Literacy Answer Date Recorded How often do you need to hav e someone help you when you read instructions, pamphlets, or other written material from your doctor or pharmacy? Often 03/07/2024 Caregiver: How often do you need to have someone help you when you read instructions, pamphlets, or other written material from your doctor or pharmacy? Not on file 03/07/2024 Social Isolation Answer Date Recorded How often do you feel lonely or isolated from th ose around you? Never 03/07/2024 Food Risk Answer Date Recorded Within the past 12 months we worried whether our food would run out before we got money to buy more. Never true 11/28/2024 Within the past 12 months th e food we bought just didn't last and we didn't have money to get more. Never true 11/28/2024 Comments Unknown Sex and Gender Information Value Date Recorded Sex Assigned at Female 11/24/2024 10:24 AM EDT Legal Sex Female 6:33 PM EDT Gender Identity Female 11/24/2024 10:24 AM EDT Sexual Orientation Choose not to disclose 2024 10:24 AM EDT documented as of this encounter Functional Status * Calculated C-SSRS Risk Score (Lifetime/Recent) Answer Date of Assessment Author No Risk Indicated 11/17/2024 5:11 PM EDT Rosa Drake RN * [place] Suicide Severity Rating Scale (Screener/Recent Self-Report) Question Answer Date of Assessment Author 1. Wish to be (Past 1 Month) No 11/17/2024 5:11 PM EDT Rosa Oconnor RN 2. Non-Specific Active Suicidal Thoughts (Past 1 Month) No 11/17/2024 5:11 PM EDT Rosa Oconnor, JORDY 6. Suicidal Behavior (Lifetime) No 11/17/2024 5:11 PM EDT Rosa Oconnor RN documented as of this encounter Plan of Treatment Not on file documented as of this encounter Visit Diagnoses Not on filedocumented in this encounter
--- NOTE | 2025-01-30 13:53 | MHC.PC.OV ---
Vital Signs 01/30/25 13:59 Height 5 ft Weight 96 lb 8 oz BMI 18.8 BP 126/70 Blood Pressure Location Lt brachial Position Sitting Pulse 71 Pulse Source Pulse Oximeter Temp 97.4 F Temp Source Oral Pulse Oximetry (%) 97 Oxygen Delivery Method Room Air Intake Visit Reasons: Hospital follow up Intake Note: Pt is here today for Hospital follow up visit. Allergies lisinopril (Zestril) Allergy (Unknown, Verified 01/30/25 14:07) pt does not remember it was 20 years ago trazodone Allergy (Verified 01/30/25 14:08) not herself confused Codeine Allergy (Unknown, Uncoded 01/30/25 14:07) pt does not remember Medication List - Last Reconciled 01/30/25 by Yary Whitlock MD acetaminophen 325 mg PO TID PRN ascorbic acid (vitamin C) mg PO aspirin 81 mg PO DAILY atorvastatin 80 mg PO DAILY docusate sodium 100 mg PO DAILY donepezil 10 mg PO BEDTIME melatonin 3 mg PO BEDTIME PRN metoprolol tartrate 37.5 mg PO BID gpyeeravzsio-Xj-mybn-minerals tabs PO thiamine HCl (vitamin B1) 100 mg PO DAILY vitamin A palmitate 3,000 mcg PO DAILY zinc sulfate 50 mg PO DAILY Tobacco use date assessed: 01/30/25 Fall risk assessment: 2 + Falls in past year Last assessed Fall Risk: 01/30/25 Dental Screening Dental Screen Date: 01/30/25 Did you have a dental visit in the last 12 months?: No Did you have a dental problem in the last 6 months where you did not have access to dental care?: No Was dental information given to patient?: Patient declined [facility] Hospital follow up HPI Details Patient presents for the follow-up of bone inpatient rehab stay for 1 month after ER visit to [facility] with complaint of worsening confusion change in mental status. The workup was negative for significant abnormalities. Patient has been 1 month in inpatient rehab to improve ambulation and strength. She lives with her son who is her caregiver. Patient is ambulating with a walker. She reports improved appetite but lost 20 lb in assisted. Her confusion is at baseline according to her son. 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 Mother No problems noted. Sister No problems noted. Social History Housing: House Alcohol intake: never Patient Tobacco Use Status: Never used Tobacco e-Cigarette/Vaping Use: Never Used service: No Current occupational status: retired Cognitive needs: No Hearing needs: No Vision needs: Yes Questionnaire PHQ-9 Over the last 2 weeks, how often have you been bothered by any of the following problems? 1. Little interest or pleasure in doing things: not at all 2. Feeling down, depressed, or hopeless: not at all 3. Trouble falling or staying asleep, or sleeping too much: several days 4. Feeling tired or having little energy: more than half the days 5. Poor appetite or overeating: not at all 6. Feeling bad about yourself - or that you are a failure or have let yourself or your family down: not at all 7. Trouble concentrating on things, such as reading the newspaper or watching television: nearly every day 8. Moving or speaking so slowly that other people could have noticed. Or the opposite - being so fidgety or restless that you have been moving around a lot more than usual: not at all 9. Thoughts that you would be better off or of hurting yourself in some way: not at all Total score: 6 Depression Screening Interpretation: Negative Depression Screening Done: Yes Source: Developed by Drs. Reece Argueta, Jennifer Davis, Lee Mcmillan and colleagues, with an educational amberly from [employer]. Thrive Questionnaire Date Thrive assessed: 09/24/23 I am a: Patient What is your living situation today?: I have a steady place to live Within the past 12 months, did the food you bought not last and you didn't have the money to get more?: Never true Within the past 12 months, did you worry whether your food would run out before you got money to buy more?: Never true Do you have trouble paying for medicines?: No Do you have trouble getting transportation to medical appointments?: No Do you have trouble paying your heating and electricity bill?: No Do you have trouble taking care of your child, family member or friend?: No Do you have trouble with day-to-day activities such as bathing, preparing meals, shopping, managing finances, etc.?: No Are you currently unemployed and looking for a job?: No Are you interested in more education?: No THRIVE Score: 0 GRAHAM-7 AMB Questionnaire GRAHAM-7 Date GRAHAM - 7 assessed: 01/30/25 Feeling nervous, anxious, or on edge: 0 = Not at all Not being able to stop or control worryin = Not at all Worrying too much about different things: 0 = Not at all Trouble relaxin = Not at all Being so restless that it is hard to sit still: 0 = Not at all Becoming easily annoyed or irritable: 0 = Not at all Feeling afraid as if something awful might happen: 0 = Not at all Total GRAHAM-7 score (0-4 normal; 5-9 mild; 10-14 moderate; 15-21 severe): 0 Source: Developed by Drs. Reece Argueta, Jennifer Davis, Lee Mcmillan and colleagues, with an educational amberly from [employer]. GRAHAM-7 Assessment Billing GRAHAM-7 Assessment Tool: GRAHAM-7 Assessment 41229 Review of Systems Const All systems reviewed & are unremarkable except as noted in HPI and below Eyes Reports no additional complaints ENT Reports no additional complaints Card Reports no additional complaints Resp Reports no additional complaints GI Reports no additional complaints Reports no additional complaints Physical exam (Primary Care) Vital Signs: Last Vital Signs Temp 97.4 F 01/30/25 13:59 Pulse 71 01/30/25 13:59 BP 126/70 01/30/25 13:59 Pulse Ox 97 01/30/25 13:59 Oxygen Delivery Method Room Air 01/30/25 13:59 BMI result Body Mass Index 18.8 Tobacco/Smoking Status: Tobacco use Status Tobacco use date assessed 01/30/25 01/30/25 14:10 Patient Tobacco Use Status Never used Tobacco 01/30/25 13:53 e-Cigarette/Vaping Use Never Used 01/30/25 13:53 PHQ-9: PHQ-9 Score PHQ-9: Total score 6 01/30/25 14:10 Depression Screening Interpretation: Negative Thrive Assessment: Date of Thrive Assessment Date Thrive assessed 09/24/23 01/30/25 13:53 Const General: no acute distress HENMT Head: Yes normal to inspection Face and sinus: Yes normal facial exam Eyes General: appearance normal, both eyes and all related structures Resp Effort & Inspection: normal respiratory effort Auscultation: clear to auscultation bilaterally Cardio Rhythm: regular rhythm Heart sounds: S1 normal heart sound present and S2 normal heart sound present GI Inspection: Yes normal to inspection Palpation (GI): Soft to palpation Percussion: Yes normal to percussion Auscultation: normal bowel sounds Coding Level of Care Code Est Pt Level 4 (24080) Diagnoses Dementia F03.90 Afib I48.91 NSTEMI (non-ST elevated myocardial infarction) I21.4 Additional Codes GRAHAM-7 Assessment Billing - GRAHAM-7 Assessment Tool: GRAHAM-7 Assessment 95361 ([id number]) Assessment & Plan Assessment & Plan (1) Dementia: Comment: On donepezil Code(s): F03.90 - Unspecified dementia, unspecified severity, without behavioral disturbance, psychotic disturbance, mood disturbance, and anxiety Category: Medical Plan: Continue donepezil (2) Afib: Comment: 02/2024 converted , on metoprolol not anticoagulated due to high risk of falling Code(s): I48.91 - Unspecified atrial fibrillation Category: Medical Plan: On metoprolol (3) NSTEMI (non-ST elevated myocardial infarction): Comment: 02/17/2024, hospitalized at [facility] medically managed, Code(s): I21.4 - Non-ST elevation (NSTEMI) myocardial infarction Category: Medical Plan: Continue high dose of statin
[2025-01-30 13:59] VITALS: BP 126/70; PULSE 71; TEMP 36.3; O2SAT 97; BMI 18.8
--- OUTSIDE RECORDS SUMMARY | 2025-01-30 14:33 | XMS_ITS | Clinical Summary ---
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 Active atorvastatin (LIPITOR) 80 mg tablet Take 1 tablet (80 mg total) by mouth at bedtime. 30 each 03/07/2024 03/07/20 25 Active ascorbic acid (VITAMIN C) 500 mg tablet Take 1 tablet (500 mg total) by mouth 2 (two) times a day. 60 each 03/07/2024 03/07/20 25 Active multivitamin minerals-iron (THERA-M) 9 mg iron-400 mcg tablet Take 1 tablet by mouth 1 (one) time each day. 30 tablet 03/08/2024 Active vitamin A 3,000 mcg (10,000 unit) capsule Take 1 capsule (10,000 Units total) by mouth 1 (one) time each day. 30 capsule 03/08/2024 03/08/20 25 Active zinc sulfate (ZINCATE) 220 mg (50 mg elemental zinc) capsule Take 1 capsule (220 mg total) by mouth 1 (one) time each day. 30 each 11 03/08/2024 11/06/20 25 Active metoprolol succinate (TOPROL-XL) 100 mg 24 hr tablet Take 1 tablet (100 mg total) by mouth 1 (one) time each day. Do not crush or chew. 30 each 11/29/2024 11/30/19 26 Active hydroCHLOROthiaz tejal (HYDRODIURIL) 25 mg tablet Take 1 tablet (25 mg total) by mouth 1 (one) time each day. 30 each 11/29/2024 11/30/19 26 Active losartan (COZAAR) 50 mg tablet Take 1 tablet (50 mg total) by mouth 1 (one) time each day. 30 each 11/29/2024 11/30/19 26 Active Active Problems Problem Noted Date Diagnosed Date Protein-calorie malnutrition, severe ([facility] V2 4) 11/28/2024 Leukocytosis (leucocytosis) 03/04/2024 Unwitnessed fall 03/04/2024 CAD (coronary artery disease) 03/04/2024 Orthostatic hypotension 03/04/2024 Assessment & Plan (03/04/2024 12:18 PM EDT): Push clears avoid midodrine for now medications adjusted Dementia ([facility] V24, [facility] V28) 03/04/2024 Anemia 03/04/2024 Assessment & Plan (03/04/2024 12:19 PM EDT): Current treatment plan Atrial fibrillation with RVR ([facility] V24, [facility]/ [facility] V28) 03/04/2024 Assessment & Plan (03/04/2024 12:20 PM EDT): Continue current treatment plan Hip fracture, right ([facility] V24, [facility] V28) 1 Resolved Problems Problem Noted Date Diagnosed Date Resolved Date Intracranial hemorrhage ([facility] V24, [facility] V28) 11/23/2024 11/28/2024 UTI (urinary tract infection) 11/17/2024 11/28/2024 NSTEMI (non-ST elevated myoc ardial infarction) ([facility] V24, [facility] V28) 03/04/2024 0 11/28/2024 Encounters Date Type Department Care Team Description 11/23/2024 10:36 PM EDT - 11/30/2024 12:03 PM EDT Hospital Encounter [facility] Med Card [id number] [place] [id number] Elliott Burr MD Nadler, Evan, MD Magge, Anil Shankar, MD Uddin, Syed Mohammad Mazhar, MD Echeazu, Odera, MD Intracranial hemorrhage ([facility] V24, [facility] V28) (Primary Dx) Discharge Disposition: [facility] Facility 11/23/2024 5:00 PM EDT - 11/23/2024 9:54 PM EDT Emergency [facility] [address] [place] [phone] Altered mental status, unspecified altered mental status type (Primary Dx); Hematoma of temporal region Discharge Disposition: Short [facility] 11/17/2024 5:07 PM EDT - 11/18/2024 5:49 PM EDT Hospital Encounter [facility] [address] [place] [phone] Josesito Hooks MD Notash, MD Love Morales Kashyap Devendrabhai, MD Lawrenz, MD Ephraim Arguelles Omar D, MD Altered mental status, unspecified altered mental status type (Primary Dx); Acute cough; Pyuria; Cystitis; Acute cystitis without hematuria; Moderate dementia, unspecified dementia type, unspecified whether behavioral, psychotic, or mood disturbance or anxiety ([facility] V24, [facility] V28) Discharge Disposition: Home-Health Care [facility] 10/31/2024 11:43 PM EDT - 11/01/2024 4:46 AM EDT Emergency [facility] [address] [place] [phone] Insomnia, unspecified type (Primary Dx); Dementia without behavioral disturbance, psychotic disturbance, mood disturbance, or anxiety, unspecified dementia severity, unspecified dementia type ([facility] V24, [facility] V28) Discharge Disposition: Home or Self Care from Last 3 Months Medical History Medical History Date Comments Hypertension Hypercholesteremia Dementia with behavioral disturbance ([facility] V2 4, [facility] V28) S/P right hip fracture Social History Tobacco Use Types Packs/Day Years Used Date Smoking Tobacco: Never Smokeless Tobacco: Never Tobacco Cessation:Counseling Given: Not Answered Alcohol Use Standard Drinks/Week Comments Never 0 [...] not to disclose 2024 10:24 AM EDT Obstetrics History Last Filed Vital Signs Vital Sign Reading Time Taken Comments Blood Pressure 129/76 11/30/2024 8:28 AM EDT Pulse 67 11/30/2024 8:28 AM EDT Temperature 36.4 C (97.6 F) 11/30/2024 8:28 AM EDT Respiratory Rate 18 11/30/2024 8:28 AM EDT Oxygen Saturation 97% 11/30/2024 8:28 AM EDT Inhaled Oxygen Concentration - - Weight 45.5 kg (100 lb 5 oz) 11/29/2024 7:18 AM EDT Height 162.6 cm (5' 4 ) 11/25/2024 3:00 PM EDT Body Mass Index 17.22 11/25/2024 3:00 PM EDT Plan of Treatment Health Maintenance Due Date Last Done Comments DTaP,Tdap,and Td Vaccines (1 - Tdap) 10[birth year]12/1954 Pneumococcal Vaccine: 50+ Years (1 of 1 - PCV) 1986 Zoster Vaccines (1 of 2) 1986 RSV Immunization Adult Patients (1 - 1-dose 75+ series) 10/12/2011 Medicare Annual Wellness Visit 02/17/2024 Osteoporosis Screening (Bone Density Screening) 02/17/2024 Depression Screening 05/03/2024 03/07/2024 COVID-19 Vaccine ( - season) 2025 03/24/2021, 09/13/2020, 08/23/2020 Influenza Vaccine (#1) 2025 , 03/24/2021, 02/27/2018, Additional history exists Hypertension/CHF/CAD Annual BMP Blood Test 11/26/2025 11/26/2024, 11/25/2024, 11/24/2024, Additional history exists Social Influencers of Health Screening 11/28/2025 11/28/2024 Falls Risk Assessment 11/30/2025 11/30/2024 Cholesterol Screening (Lipid Panel) 11/24/2029 11/24/2024 HIB Vaccines Aged Out No longer eligi [...] Procedure Name Priority Date/Time Associated Diagnosis Comments ECG ANNOTATED 12/04/2024 POCT GLUCOSE BLOOD Routine 11/30/2024 5: 34 AM EDT POCT GLUCOSE BLOOD Routine 11/29/2024 11 :25 PM EDT POCT GLUCOSE BLOOD Routine 11/29/2024 1: 18 PM EDT POCT GLUCOSE BLOOD Routine 11/29/2024 8: 49 AM EDT POCT GLUCOSE BLOOD Routine 11/28/2024 11 :58 PM EDT POCT GLUCOSE BLOOD Routine 11/28/2024 5: 11 PM EDT POCT GLUCOSE BLOOD Routine 11/28/2024 12 :19 PM EDT POCT GLUCOSE BLOOD Routine 11/28/2024 5: 17 AM EDT POCT GLUCOSE BLOOD Routine 11/27/2024 11 :46 PM EDT POCT GLUCOSE BLOOD Routine 11/27/2024 5: 06 PM EDT POCT GLUCOSE BLOOD Routine 11/27/2024 12 :46 PM EDT POCT GLUCOSE BLOOD Routine 11/27/2024 6: 17 AM EDT MAGNESIUM Routine 11/26/2024 4:23 PM EDT COMPLETE BLOOD COUNT Routine 11/26/2024 4:23 PM EDT BASIC METABOLIC PANEL Timed 11/26/2024 4:23 PM EDT POCT GLUCOSE BLOOD Routine 11/26/2024 6: 41 AM EDT POCT GLUCOSE BLOOD Routine 11/25/2024 11 :23 PM EDT POCT GLUCOSE BLOOD Routine 11/25/2024 3: 31 PM EDT ROUTINE EEG Routine 11/25/2024 8:49 AM EDT POCT GLUCOSE BLOOD Routine 11/25/2024 6: 44 AM EDT CBC WITH AUTO DIFFERENTIAL Routine 11/25/2024 5:39 AM EDT PHOSPHORUS Routine 11/25/2024 5:39 AM EDT MAGNESIUM Routine 11/25/2024 5:39 AM EDT BASIC METABOLIC PANEL Routine 11/25/2024 5:39 AM EDT CBC AND DIFFERENTIAL Routine 11/25/2024 5:39 AM EDT POCT GLUCOSE BLOOD Routine 11/24/2024 11 :[address] HEAD WO CONTRAST Routine 11/24/2024 8 :29 PM EDT POCT GLUCOSE BLOOD Routine 11/24/2024 5: 21 PM EDT MR BRAIN WO CONTRAST Routine 11/24/2024 2:57 PM EDT TRANSTHORACIC ECHOCARDIOGRAM (TTE) COMPLETE W/ CONTRAST Routine 11/24/2024 11:45 AM EDT Intracranial hemorrhage (CMS/HCC V24, CMS/HCC V28) POCT GLUCOSE BLOOD Routine 11/24/2024 11 :[address] HEAD WO CONTRAST Routine 11/24/2024 5 :51 AM EDT LIPID PANEL Routine 11/24/2024 5:50 AM EDT PHOSPHORUS Routine 11/24/2024 5:50 AM EDT MAGNESIUM Routine 11/24/2024 5:50 AM EDT COMPREHENSIVE METABOLIC PANEL Routine 11/24/2024 5:50 AM EDT COMPLETE BLOOD COUNT Routine 11/24/2024 5:50 AM EDT ECG ANNOTATED 11/24/2024 PROTHROMBIN TIME WITH INR STAT 11/23/2024 7:[address] HEAD WO CONTRAST STAT 11/23/2024 7 :20 PM EDT SALICYLATE LEVEL STAT 11/23/2024 7:08 PM EDT ACETAMINOPHEN LEVEL STAT 11/23/2024 7 :08 PM EDT COMPREHENSIVE METABOLIC PANEL STAT 11/23/2024 7:08 PM EDT LACTATE, WITH REFLEX STAT 11/23/2024 6:28 PM EDT AMMONIA STAT 11/23/2024 6:28 PM EDT XR CHEST 2 VIEWS STAT 11/23/2024 6:11 PM EDT [place] URINE CULTURE TUBE STAT 11/24/19 5:43 PM EDT URINALYSIS WITH REFLEX MICROSCOPIC AND CULTURE STAT 11/23/2024 5:43 PM EDT URINALYSIS WITH REFLEX MICROSCOPIC AND CULTURE STAT 11/23/2024 5:43 PM EDT ECG 12-LEAD STAT 11/23/2024 5:42 PM EDT HEMOGLOBIN A1C Add-On 11/23/2024 5:42 PM EDT CBC WITH AUTO DIFFERENTIAL STAT 11/23/2024 5:42 PM EDT CBC AND DIFFERENTIAL STAT 11/23/2024 5:42 PM EDT ECG ANNOTATED 11/20/2024 ECG OUTSIDE 11/20/2024 LACTATE, WITH REFLEX STAT 11/17/2024 9:48 PM EDT CULTURE BLOOD STAT 11/17/2024 8:58 PM EDT CULTURE BLOOD STAT 11/17/2024 8:58 PM EDT XR CHEST 1 VIEW STAT 11/17/2024 7:15 PM EDT POCT GLUCOSE BLOOD Routine 11/17/2024 5: 52 PM EDT [place] URINE CULTURE TUBE STAT 11/18/19 5:44 PM EDT URINALYSIS WITH REFLEX MICROSCOPIC AND CULTURE STAT 11/17/2024 5:44 PM EDT CBC WITH AUTO DIFFERENTIAL STAT 11/17/2024 5:44 PM EDT URINALYSIS WITH REFLEX MICROSCOPIC AND CULTURE STAT 11/17/2024 5:44 PM EDT MAGNESIUM STAT 11/17/2024 5:44 PM EDT BASIC METABOLIC PANEL STAT 11/17/2024 5:44 PM EDT CBC AND DIFFERENTIAL STAT 11/17/2024 5:44 PM EDT CULTURE URINE STAT 11/17/2024 5:44 PM EDT ECG 12-LEAD STAT 11/17/2024 5:42 PM EDT ROYAL BLUE EDTA Routine 11/17/2024 12:00 AM EDT GREEN - NA HEPARIN Routine 11/17/2024 12 :00 AM EDT EXTRA TUBES Routine 11/17/2024 12:00 AM EDT XR CHEST 2 VIEWS STAT 11/01/2024 1:45 AM EDT ECG 12-LEAD STAT 11/01/2024 1:34 AM EDT [place] URINE CULTURE TUBE STAT 11/02/19 12:24 AM EDT URINALYSIS WITH REFLEX MICROSCOPIC AND CULTURE STAT 11/01/2024 12:24 AM EDT URINALYSIS WITH REFLEX MICROSCOPIC AND CULTURE STAT 11/01/2024 12:24 AM EDT CULTURE URINE STAT 11/01/2024 12:24 AM EDT CBC WITH AUTO DIFFERENTIAL STAT 11/01/2024 12:03 AM EDT AMMONIA STAT 11/01/2024 12:03 AM EDT COMPREHENSIVE METABOLIC PANEL STAT 11/01/2024 12:03 AM EDT CBC AND DIFFERENTIAL STAT 11/01/2024 12:03 AM EDT ECG ANNOTATED 11/01/2024 from Last 3 Months Results * ECG-Annotated (12/04/2024) Only the most recent of4 resultswithin the time period is included. Provider Onbase MD ECG ORDERABLES Final Result * POCT Glucose, blood (11/30/2024 5:34 AM EDT) Only the most recent of20 resultswithin the time period is included. Glucose POCT 109 70 - 199 mg/dL 11/30/2024 5:35 AM EDT [facility] Comment: Fasting Reference Range: 70-99 mg/dL Non-Fasting Reference Range: 70-199 mg/dL Blood Capillary blood specimen / Unknown 11/30/2024 5:34 AM EDT 11/30/2024 5:36 AM EDT us Davide Miller MD LAB POINT OF CARE TE ST DOCKED DEVICE UNSOLICITED RESULTS Final Result [facility] [address] [place] [address], [place] [phone] * (ABNORMAL) Complete blood count (11/26/2024 4:23 PM EDT) Only the most recent of2 resultswithin the time period is included. WBC 10.6(H) 4.0 - 10.5 K/mcL LAB HEMETOLOGY METHOD 11/26/2024 5:03 PM EDT [facility] RBC 5.50(H) 4.20 - 5.40 M/mcL LAB HEMETOLOGY METHOD 11/26/2024 5:03 PM EDT [facility] Hemoglobin 15.1 12.5 - 16.0 g/dL LAB HEMETOLOGY METHOD 11/26/2024 5:03 PM EDT [facility] Hematocrit 44.1 37.0 - 47.0 % LAB HEMETOLOGY METHOD 11/26/2024 5:03 PM EDT [facility] MCV 80.2 78.0 - 100.0 FL LAB HEMETOLOGY METHOD 11/26/2024 5:03 PM EDT [facility] MCH 27.4 25.0 - 33.0 pcg LAB HEMETOLOGY METHOD 11/26/2024 5:03 PM EDT [facility] MCHC 34.2 32.0 - 36.0 g/dL LAB HEMETOLOGY METHOD 11/26/2024 5:03 PM EDT [facility] RDW 18.1(H) 12.1 - 16.2 % LAB HEMETOLOGY METHOD 11/26/2024 5:03 PM EDT [facility] Platelets 279 150 - 450 K/mcL LAB HEMETOLOGY METHOD 11/26/2024 5:03 PM EDT [facility] MPV 7.1(L) 7.4 - 11.4 FL LAB HEMETOLOGY METHOD 11/26/2024 5:03 PM EDT [facility] Blood Venous blood specimen / Unknown Venipuncture / Unknown 11/26/2024 4:23 PM EDT 11/26/2024 4:37 PM EDT us Jame Espinoza MD LAB BLOOD ORDERABLES Final Resul t Performing Organization Address City/[facility]/ZIP Co de Phone Number [facility] [address] [place] [address], [place] [phone] * Magnesium (11/26/2024 4:23 PM EDT) Only the most recent of4 resultswithin the time period is included. Magnesium 1.7 1.7 - 2.8 mg/dL LAB CHEMISTRY METHOD 11/26/2024 5:28 PM EDT [facility] Blood Venous blood specimen / Unknown Venipuncture / Unknown 11/26/2024 4:23 PM EDT 11/26/2024 4:37 PM EDT us Jame Espinoza MD LAB BLOOD ORDERABLES Final Resul t Performing Organization Address City/[facility]/ZIP Co de Phone Number [facility] [address] [place] [address], [place] [phone] * (ABNORMAL) Basic metabolic panel (11/26/2024 4:23 PM EDT) Only the most recent of3 resultswithin the time period is included. Sodium 134(L) 135 - 145 mmol/L LAB CHEMISTRY METHOD 11/26/2024 5:28 PM EDT [facility] Potassium 3.9 3.5 - 5.1 mmol/L LAB CHEMISTRY METHOD 11/26/2024 5:28 PM EDT [facility] Chloride 96(L) 98 - 107 mmol/L LAB CHEMISTRY METHOD 11/26/2024 5:28 PM EDT [facility] CO2 27 24 - 32 mmol/L LAB CHEMISTRY METHOD 11/26/2024 5:28 PM EDT [facility] Anion Gap 11 5 - 14 LAB CHEMISTRY METHOD 11/26/2024 5:28 PM EDT [facility] Glucose 120 70 - 199 mg/dL LAB CHEMISTRY METHOD 11/26/2024 5:28 PM EDT [facility] BUN 15 7 - 17 mg/dL LAB CHEMISTRY METHOD 11/26/2024 5:28 PM EDT [facility] Creatinine 0.50 0.50 - 1.00 mg/dL LAB CHEMISTRY METHOD 11/26/2024 5:28 PM EDT [facility] eGFR 90 >=60 mL/min/1. 73m2 LAB CHEMISTRY METHOD 11/26/2024 5:28 PM EDT [facility] Comment:Calculation based on the Chronic Kidney Disease Epidemiology Collaboration (CKD-EPI) equation refit without adjustment for race. BUN/Creatinine Ratio 30.0(H) 12.0 - 20.0 LAB CHEMISTRY METHOD 11/26/2024 5:28 PM EDT [facility] Calcium 9.5 8.4 - 10.2 mg/dL LAB CHEMISTRY METHOD 11/26/2024 5:28 PM EDT [facility] Blood Venous blood specimen / Unknown Venipuncture / Unknown 11/26/2024 4:23 PM EDT 11/26/2024 4:37 PM EDT us Jame Espinoza MD LAB BLOOD ORDERABLES Final Resul t [facility] [address] [place] [address], [place] [phone] * Routine EEG (11/25/2024 8:49 AM EDT) Narrative [facility] - 11/25/2024 3:56 PM EDT Gerry Pablo MD 11/25/2024 4:04 PM NEUROPHYSIOLOGY LAB EEG REPORT Patient Name: KARLEE JACOBSEN MR#: [id number] DATE OF STUDY: 11/25/2024 : 1935 REF. PHYSICIAN: Jame Espinoza MD DIAGNOSIS: Left temporal ICH TYPE OF STUDY: Routine /Bed side EEG PATIENT #: ROUTINE IP MEDICATIONS: [Held by provider] aspirin, 81 mg, oral, BID atorvastatin, 80 mg, oral, Nightly cefdinir, 300 mg, oral, BID donepeziL, 10 mg, oral, Nightly hydroCHLOROthiazide, 25 mg, oral, Daily losartan, 50 mg, oral, Daily metoprolol succinate, 75 mg, oral, Daily mupirocin, 1 Application, Each Nostril, BID pantoprazole, 40 mg, intravenous, q24h polyethylene glycol, 17 g, oral, Daily senna, 2 tablet, oral, Nightly sodium chloride, 10 mL, intravenous, BID traZODone, 50 mg, oral, Nightly PRN medications: acetaminophen, Insert peripheral IV AND Maintain IV access AND Saline lock IV AND sodium chloride AND sodium chloride HISTORY: KARLEE JACOBSEN is a 89 year old Female with history of dementia, hypertension, dyslipidemia who was transferred from [facility] on 11/23/2024 for small left temporal ICH management INTRODUCTION: A digital EEG was performed at bedside using the standard international 10/20 system of electrode placement in addition to one channel of EKG monitoring. Hyperventilation was not performed and Photic Stimulation was performed. This tracing captures brief wakefulness through Stage II sleep. DESCRIPTION OF RECORD: In the most alert state the alpha rhythm is 9-10 Hz in frequency, 50-70 uV in amplitude seen in the occipital region which attenuates with eye opening. There is a small amount of low amplitude fronto-central beta activity which is distributed symmetrically. Stage I sleep is characterized by disappearance of the alpha rhythm, slowing of the background, and absence of muscle and eye blink artifact as well as the presence of vertex sharp waves . Stage II sleep is characterized by the presence of K-complexes and sleep spindles. Photic stimulation was performed at multiple flash frequencies and did not result in a symmetric driving response. There are occasional bursts of left anterior, mid and posterior temporal slowing at F7/T3/T5 , in wakefulness and sleep consisting of 1.0-3.0 Hz delta frequency, 50-70 uv in amplitude lasting 1-3 seconds mixed with 4-6 Hz rare sharp waves seen arising from the T3 (mid temporal) during sleep. Heart rate is 60 bpm. IMPRESSION: This is an abnormal EEG due to left temporal slowing, seen during sleep and also rare sharp waves seen arising from the T3 (mid temporal) during sleep. CLINICAL CORRELATION: The above findings are suggestive of a structural abnormality in the left hemisphere or left temporal dysfunction or due to recent left temporal ICH. The rare sharp waves are consistent with underlying epileptogenic foci but no elevtrographic seizures. If seizures are clinical concern, a repeat 24 hour ambulatory EEG or longterm video EEG may be helpful. Gerry Coreas M.D Board Certified Neurologist & Board Certified Clinical Neurophysiologist, [employer] Rol[employer] Operator of Neurology, [facility]. us Jame Espinoza MD NEUROLOGY ORDERABLES Final Resul t [facility] * (ABNORMAL) CBC auto differential (11/25/2024 5:39 AM EDT) Only the most recent of4 resultswithin the time period is included. WBC 8.3 4.0 - 10.5 K/mcL LAB HEMETOLOGY METHOD 11/25/2024 6:00 AM EDT [facility] RBC 5.54(H) 4.20 - 5.40 M/mcL LAB HEMETOLOGY METHOD 11/25/2024 6:00 AM EDT [facility] Hemoglobin 14.7 12.5 - 16.0 g/dL LAB HEMETOLOGY METHOD 11/25/2024 6:00 AM EDT [facility] Hematocrit 44.4 37.0 - 47.0 % LAB HEMETOLOGY METHOD 11/25/2024 6:00 AM EDT [facility] MCV 80.2 78.0 - 100.0 FL LAB HEMETOLOGY METHOD 11/25/2024 6:00 AM EDT [facility] MCH 26.5 25.0 - 33.0 pcg LAB HEMETOLOGY METHOD 11/25/2024 6:00 AM EDT [facility] MCHC 33.0 32.0 - 36.0 g/dL LAB HEMETOLOGY METHOD 11/25/2024 6:00 AM EDT [facility] RDW 17.9(H) 12.1 - 16.2 % LAB HEMETOLOGY METHOD 11/25/2024 6:00 AM EDT [facility] Platelets 252 150 - 450 K/mcL LAB HEMETOLOGY METHOD 11/25/2024 6:00 AM EDT [facility] MPV 6.7(L) 7.4 - 11.4 FL LAB HEMETOLOGY METHOD 11/25/2024 6:00 AM EDT [facility] Neutrophils Relative 82.0(H) 44.0 - 74.0 % LAB HEMETOLOGY METHOD 11/25/2024 6:00 AM EDT [facility] Lymphocytes Relative 9.7(L) 20.0 - 48.0 % LAB HEMETOLOGY METHOD 11/25/2024 6:00 AM EDT [facility] Monocytes Relative 6.7 2.0 - 12.0 % LAB HEMETOLOGY METHOD 11/25/2024 6:00 AM EDT [facility] Eosinophils Relative 1.1 0.0 - 6.0 % LAB HEMETOLOGY METHOD 11/25/2024 6:00 AM EDT [facility] Basophils Relative 0.5 0.0 - 2.0 % LAB HEMETOLOGY METHOD 11/25/2024 6:00 AM EDT [facility] Neutrophils Absolute 6.80 1.80 - 7.80 K/mcL LAB HEMETOLOGY METHOD 11/25/2024 6:00 AM EDT [facility] Lymphocytes Absolute 0.80(L) 1.00 - 3.20 K/mcL LAB HEMETOLOGY METHOD 11/25/2024 6:00 AM EDT [facility] Monocytes Absolute 0.60 0.00 - 0.80 K/mcL LAB HEMETOLOGY METHOD 11/25/2024 6:00 AM EDT [facility] Eosinophils Absolute 0.10 0.00 - 0.50 K/mcL LAB HEMETOLOGY METHOD 11/25/2024 6:00 AM EDT [facility] Basophils Absolute 0.00 0.00 - 0.20 K/mcL LAB HEMETOLOGY METHOD 11/25/2024 6:00 AM EDT [facility] Blood Venous blood specimen / Unknown Venipuncture / Unknown 11/25/2024 5:39 AM EDT 11/25/2024 5:53 AM EDT us Jame Espinoza MD LAB BLOOD ORDERABLES Final Resul t [facility] [address] [place] [id number], [place] [phone] * Phosphorus (11/25/2024 5:39 AM EDT) Only the most recent of2 resultswithin the time period is included. [facility] Signature Phosphorus 3.5 2.5 - 4.5 mg/dL LAB CHEMISTRY METHOD 11/25/2024 6:23 AM EDT [facility] Blood Venous blood specimen / Unknown Venipuncture / Unknown 11/25/2024 5:39 AM EDT 11/25/2024 5:53 AM EDT us Jame Espinoza MD LAB BLOOD ORDERABLES Final Resul t [facility] [address] [place] [id number], [place] [phone] * CT Head wo Contrast (11/24/2024 8:29 PM EDT) Only the most recent of3 resultswithin the time period is included. Anatomical Region Laterality Modality Head and Neck Computed Tomogra phy 11/25/2024 12:2 1 AM EDT Impressions 11/25/2024 12:24 AM EDT 1. Stable 0.8 cm parenchymal hemorrhage in the inferior left temporal lobe. No new or enlarging hemorrhage, and no mass effect or midline shift. 2. Chronic senescent changes. Report reviewed and signed by : Dr. Cheng Maradiaga on 11/25/2024 12:24 AM. Workstation Name - [id number] -------- FINAL REPORT -------- Dictated By: Cheng Maradiaga Dictated Date: 11/25/2024 00:21 ET Assigned Physician: Cheng Maradiaga Reviewed and Electronically Signed By: Cheng Maradiaga Signed Date: 11/25/2024 00:24 ET Workstation ID: [id number] Transcribed By: Self Edit Transcribed Date: 11/25/2024 00:21 ET Narrative 11/25/2024 12:[address] OF THE BRAIN WITHOUT IV CONTRAST CLINICAL HISTORY: Cerebral hemorrhage suspected TECHNIQUE: Exam is performed without intravenous contrast. Per PQRS, CT exam is performed using one or more of the following dose reduction techniques: Automated exposure control, adjustment of the mA and/or KV according to patient size, or use of iterative reconstruction techniques. COMPARISON: 11/24/2024 FINDINGS: Stable 0.8 cm parenchymal hemorrhage in the inferior left temporal lobe. No new or enlarging hemorrhage, and no mass effect or midline shift. Generalized cerebral atrophy. Severe chronic microangiopathic white matter changes. Old left frontal lobe infarct. Intracranial vascular calcifications. Extra-axial compartments are normal. Sinuses are clear. Mastoid air spaces are clear. Middle ear cavities are clear. Calvarium is intact. Scalp is unremarkable. Procedure Note Cheng Maradiaga MD - 11/25/2024 CT OF THE BRAIN WITHOUT IV CONTRAST CLINICAL HISTORY: Cerebral hemorrhage suspected TECHNIQUE: Exam is performed without intravenous contrast. Per PQRS, CT exam is performed using one or more of the following dosereduction techniques: Automated exposure control, adjustment of the mAand/or KV according to patient size, or use of iterative reconstructiontechniques. COMPARISON: 11/24/2024 FINDINGS: Stable 0.8 cm parenchymal hemorrhage in the inferior left temporal lobe.No new or enlarging hemorrhage, and no mass effect or midline shift.Generalized cerebral atrophy. Severe chronic microangiopathic whitematter changes. Old left frontal lobe infarct. Intracranial vascularcalcifications. Extra-axial compartments are normal. Sinuses are clear. Mastoid air spaces are clear. Middle ear cavities are clear. Calvarium is intact. Scalp is unremarkable. IMPRESSION: 1. Stable 0.8 cm parenchymal hemorrhage in the inferior left temporallobe. No new or enlarging hemorrhage, and no mass effect or midlineshift. 2. Chronic senescent changes. Report reviewed and signed by : Dr. Cheng Maradiaga on 11/25/2024 12:24 AM.Workstation Name - [id number] -------- FINAL REPORT -------- Dictated By: Cheng Maradiaga Dictated Date: 11/25/2024 00:21 ET Assigned Physician: Cheng Maradiaga Reviewed and Electronically Signed By: Cheng Maradiaga Signed Date: 11/25/2024 00:24 ET Workstation ID: [id number] Transcribed By: Self Edit Transcribed Date: 11/25/2024 00:21 ET Jame Espinoza MD IMG CT PROCEDURES Final Result * MR Brain wo Contrast (11/24/2024 2:57 PM EDT) Anatomical Region Laterality Modality Head and Neck Magnetic Resonan ce 11/24/2024 3:38 PM EDT Impressions 11/24/2024 3:47 PM EDT 1. Stable small left temporal lobe hemorrhage. No evidence of acute infarct. 2. Severe chronic microangiopathic white matter changes. Report reviewed and signed by : Dr. Cheng Maradiaga on 11/24/2024 3:47 PM. Workstation Name - [id number] -------- FINAL REPORT -------- Dictated By: Cheng Maradiaga Dictated Date: 11/24/2024 15:38 ET Assigned Physician: Cheng Maradiaga Reviewed and Electronically Signed By: Cheng Maradiaga Signed Date: 11/24/2024 15:47 ET Workstation ID: [id number] Transcribed By: Self Edit Transcribed Date: 11/24/2024 15:38 ET Narrative 11/24/2024 3:47 PM EDT MAGNETIC RESONANCE IMAGING OF THE BRAIN WITHOUT IV CONTRAST CLINICAL HISTORY: Evaluate for infarct. TECHNIQUE: Multiplanar spin echo pulse sequences obtained. Exam is performed without intravenous contrast. COMPARISON: 11/24/2024 FINDINGS: The left temporal lobe hemorrhage seen on recent CT is seen only as a faint area of FLAIR hyperintensity on MRI, likely due to to significant motion artifact. Negative for acute infarct. Severe chronic microangiopathic white matter changes. Normal sized ventricles. Extra-axial compartments are normal. Sinuses are clear. Mastoid air spaces are clear. Middle ear cavities are clear. Calvarium is intact. Scalp is unremarkable. Procedure Note Cheng Maradiaga MD - 11/24/2024 MAGNETIC RESONANCE IMAGING OF THE BRAIN WITHOUT IV CONTRAST CLINICAL HISTORY: Evaluate for infarct. TECHNIQUE: Multiplanar spin echo pulse sequences obtained. Exam is performed without intravenous contrast. COMPARISON: 11/24/2024 FINDINGS: The left temporal lobe hemorrhage seen on recent CT is seen only as afaint area of FLAIR hyperintensity on MRI, likely due to to significantmotion artifact. Negative for acute infarct. Severe chronic microangiopathic white matter changes. Normal sized ventricles. Extra-axial compartments are normal. Sinuses are clear. Mastoid air spaces are clear. Middle ear cavities areclear. Calvarium is intact. Scalp is unremarkable. IMPRESSION: 1. Stable small left temporal lobe hemorrhage. No evidence of acuteinfarct. 2. Severe chronic microangiopathic white matter changes. Report reviewed and signed by : Dr. Cheng Maradiaga on 11/24/2024 3:47 PM.Workstation Name - [id number] -------- FINAL REPORT -------- Dictated By: Cheng Maradiaga Dictated Date: 11/24/2024 15:38 ET Assigned Physician: Cheng Maradiaga Reviewed and Electronically Signed By: Cheng Maradiaga Signed Date: 11/24/2024 15:47 ET Workstation ID: [id number] Transcribed By: Self Edit Transcribed Date: 11/24/2024 15:38 ET us Elliott Burr MD IMG MRI PROCEDURES Final Result * (ABNORMAL) TRANSTHORACIC ECHOCARDIOGRAM (TTE) COMPLETE W/ CONTRAST (11/24/2024 11:45 AM EDT) LV EDV (A2C) 49 mL CV PACS LV EDV (A4C) 75 mL CV PACS LV Diastolic Volume (BP) 63 46 - 106 mL CV PACS LV ESV (A2C) 15 mL CV PACS LV ESV (A4C) 21 mL CV PACS LV Systolic Volume (BP) 19 14 - 42 mL CV PACS IVSD 1.0(A) 0.6 - 0.9 cm CV PACS LVIDD 3.9 3.8 - 5.2 cm CV PACS LVIDS 2.4 2.2 - 3.5 cm CV PACS LVOT Mean Grad 2 mmHg CV PACS LVOT Peak VTI 15.6 cm CV PACS LVOT Mean Jed 0.6 m/s CV PACS LVOT Peak Jed 0.9 m/s CV PACS LVOT Peak Gradient 3 mmHg CV PACS LVPWD 0.8 0.6 - 0.9 cm CV PACS MV E' Tissue Velocity Lateral 7 cm/s CV PACS MV E' Tissue Velocity Septal 5 cm/s CV PACS Ejection Fraction (A2C) 69 % CV PACS Ejection Fraction (A4C) 72 % CV PACS Ejection Fraction (BP) 70 % CV PACS Left Atrium Minor Steuben 5.0 cm CV PACS Left Atrium Major Steuben 5.3 cm CV PACS LA Area Sys (A2C) 13 cm2 CV PACS LA Area Sys (A4C) 13 cm2 CV PACS LA Volume (BP) 26 mL CV PACS AV Peak Jed 1.1 m/s CV PACS AV Peak Gradient 5 mmHg CV PACS Aortic Root 3.3 cm CV PACS PV Peak Velocity 0.8 m/s CV PACS PV Peak Gradient 2 mmHg CV PACS RV S' 14 cm/s CV PACS TAPSE 29 mm CV PACS LV ESV Index (A4C) 15 mL/m2 CV PACS LV EDV Index (A4C) 52 mL/m2 CV PACS Relative Wall Thickness ratio 0.41 CV PACS FS 38 % CV PACS LV Mass 2D 105 g CV PACS LVIDD Index 2.71 cm/m2 CV PACS LVIDS Index 1.67 cm/m2 CV PACS Aortic Root Index 2.29 cm/m2 CV PACS AV Velocity Ratio 0.82 CV PACS LV Systolic Volume Index (BP) 13 mL/m2 CV PACS LV Diastolic Volume Index (BP) 44 mL/m2 CV PACS LA Volume Index (BP) 18 mL/m2 CV PACS LV Mass Index 2D 73 g/m2 CV PACS LV EDV Index (A2C) 34 mL/m2 CV PACS LV ESV Index (A2C) 10 mL/m2 CV PACS BSA 1.43 m2 CV PACS Anatomical Region Laterality Modality Ultrasound Narrative 11/24/2024 4:14 PM EDT Left ventricle cavity size is normal. Left ventricular systolic function is hyperdynamic with an ejection fraction over 70%. Overall the study quality was technically difficult. Left Ventricle Left ventricle cavity size is normal. Wall thickness is normal. Systolic function is hyperdynamic with an ejection fraction over 70%. There are no regional LV wall motion abnormalities. There is Grade I (mild) diastolic dysfunction. Right Ventricle Right ventricle cavity appears normal. Normal TAPSE (> 17 mm). Normal systolic excursion velocity by TDI (>9.5 cm/s). Left Atrium Left atrium cavity size is normal. Right Atrium Right atrium cavity is normal. IVC/SVC Inferior vena cava was not well visualized. Mitral Valve Mitral valve structure is normal. There is no regurgitation or stenosis. Tricuspid Valve The tricuspid valve was not well visualized. Tricuspid valve structure is normal. There is no regurgitation or stenosis. Aortic Valve The aortic valve was not well visualized. Number of aortic valve cusps cannot be determined. There is no regurgitation or stenosis. Pulmonic Valve The pulmonic valve was not well visualized. There is no pulmonic valve regurgitation. No significant pulmonary valve stenosis noted. Ascending Aorta The aorta appears normal in size. Pericardium There is no pericardial effusion. Study Details Overall the study quality was technically difficult. us Elliott Burr MD CV ECHO PROCEDURES Final Result * Lipid panel (11/24/2024 5:50 AM EDT) Cholesterol 160 0 - 200 mg/dL LAB CHEMISTRY METHOD 11/24/2024 6:44 AM EDT [facility] Triglycerides 63 <150 mg/dL LAB CHEMISTRY METHOD 11/24/2024 6:44 AM EDT [facility] HDL 50 33 - 92 mg/dL LAB CHEMISTRY METHOD 11/24/2024 6:44 AM EDT [facility] LDL Calculated 97 50 - 130 mg/dL LAB CHEMISTRY METHOD 11/24/2024 6:44 AM EDT [facility] VLDL Cholesterol Og 12.6 mg/dL LAB CHEMISTRY METHOD 11/24/2024 6:44 AM EDT [facility] Comment:No established refer ence range. Blood Venous blood specimen / Unknown Venipuncture / Unknown 11/24/2024 5:50 AM EDT 11/24/2024 6:06 AM EDT us Elliott Burr MD LAB BLOOD ORDERABLES Final Resu lt [facility] [address] [place] [address], [place] [phone] * (ABNORMAL) Comprehensive metabolic panel (11/24/2024 5:50 AM EDT) Only the most recent of3 resultswithin the time period is included. Sodium 140 135 - 145 mmol/L LAB CHEMISTRY METHOD 11/24/2024 6:44 AM EDT [facility] Potassium 3.6 3.5 - 5.1 mmol/L LAB CHEMISTRY METHOD 11/24/2024 6:44 AM EDT [facility] Chloride 103 98 - 107 mmol/L LAB CHEMISTRY METHOD 11/24/2024 6:44 AM EDT [facility] CO2 28 24 - 32 mmol/L LAB CHEMISTRY METHOD 11/24/2024 6:44 AM EDT [facility] Anion Gap 9 5 - 14 LAB CHEMISTRY METHOD 11/24/2024 6:44 AM [facility] Glucose 84 70 - 199 mg/dL LAB CHEMISTRY METHOD 11/24/2024 6:44 AM [facility] BUN 12 7 - 17 mg/dL LAB CHEMISTRY METHOD 11/24/2024 6:44 AM [facility] Creatinine 0.40(L) 0.50 - 1.00 mg/dL LAB CHEMISTR[facility]24[facility]24 [facility] e[facility] 95 >=60 mL/min/1. 73m2 LAB CHEMISTRY METHOD 11/24/2024 6:44 AM [facility] Comment:Calculation based on the Chronic Kidney Disease Epidemiology Collaboration (CKD-EPI) equation refit without adjustment for race. BUN/Creatinine Ratio 30.0(H) 12.0 - 20.0 LAB CHEMISTRY METHOD 11/24/2024 6:44 AM [facility] Calcium 8.8 8.4 - 10.2 mg/dL LAB CHEMISTRY METHOD 11/24/2024 6:44 AM [facility] AST (SGOT) 14 5 - 40 unit/L LAB CHEMISTRY METHOD 11/24/2024 6:44 AM [facility] ALT (SGPT) 5(L) 7 - 52 unit/L LAB CHEMISTRY METHOD 11/24/2024 6:44 AM [facility] Alkaline Phosphatase 109(H) 34 - 104 unit/L LAB CHEMISTRY METHOD 11/24/2024 6:44 AM [facility] Total Protein 5.6(L) 6.4 - 8.5 g/dL LAB CHEMISTRY METHOD 11/24/2024 6:44 AM [facility] Albumin 3.4(L) 3.5 - 5.0 g/dL LAB CHEMISTRY METHOD 11/24/2024 6:44 AM [facility] Total Bilirubin 0.5 0.3 - 1.0 mg/dL LAB CHEMISTRY METHOD 11/24/2024 6:44 AM EDT [facility] Blood Venous blood specimen / Unknown Venipuncture / Unknown 11/24/2024 5:50 AM EDT 11/24/2024 6:06 AM EDT Elliott Burr MD LAB BLOOD ORDERABLES Final Resu lt [facility] [address] [place] [address], [place] [phone] * Protime-INR (11/23/2024 7:48 PM EDT) Protime 12.9 10.6 - 13.9 sec LAB COAGULATION METHOD 11/23/2024 8:14 PM EDT [facility] INR 1.0 LAB COAGULATION METHOD 11/23/2024 8:14 PM EDT [facility] Blood Venous blood specimen / Unknown Venipuncture / Unknown 11/23/2024 7:48 PM EDT 11/23/2024 8:04 PM EDT us Estelita FINNEGAN LAB BLOOD ORDERABLES Final Result Performing Organization Address City/[facility]/ZIP Co de Phone Number [facility] [address] [place] [address], [place] [phone] * (ABNORMAL) Acetaminophen level (11/23/2024 7:08 PM EDT) Acetaminophen Level 3.2(L) 10.0 - 30.0 mcg/mL LAB CHEMISTRY METHOD 11/23/2024 8:14 PM EDT [facility] Blood Venous blood specimen / Unknown Venipuncture / Unknown 11/23/2024 7:08 PM EDT 11/23/2024 7:38 PM EDT us Estelita FINNEGAN LAB BLOOD ORDERABLES Final Result Performing Organization Address [facility]/ZIP Co de Phone Number [facility] [address] [place] [address], * (ABNORMAL) Salicylate Level (11/23/2024 7:08 PM EDT) Salicylate Level <1.7(L) 2.0 - 29.0 mg/dL LAB CHEMISTRY METHOD 11/23/2024 8:14 PM EDT [facility] Blood Venous blood specimen / Unknown Venipuncture / Unknown 11/23/2024 7:08 PM EDT 11/23/2024 7:38 PM EDT Estelita Oliveira [place] LAB BLOOD ORDERABLES Final Result Performing Organization Address [facility] de Phone Number [facility] [address] [place] [address], * Lactate, with Reflex (11/23/2024 6:28 PM EDT) Only the most recent of2 resultswithin the time period is included. LACTIC ACID 1.1 0.4 - 2.0 mmol/L LAB CHEMISTRY METHOD 11/23/2024 7:05 PM EDT [facility] Blood Venous blood specimen / Unknown Venipuncture / Unknown 11/23/2024 6:28 PM EDT 11/23/2024 6:36 PM EDT Estelita Oliveira [place] LAB BLOOD ORDERABLES Final Result Performing Organization Address [facility] Co de Phone Number [facility] [address] [place] [address], * (ABNORMAL) Ammonia (11/23/2024 6:28 PM EDT) Only the most recent of2 resultswithin the time period is included. Ammonia <10(L) 11 - 35 mcmol/L LAB CHEMISTRY METHOD 11/23/2024 7:09 PM EDT [facility] Blood Venous blood specimen / Unknown Venipuncture / Unknown 11/23/2024 6:28 PM EDT 11/23/2024 6:36 PM EDT us Estelita Roxanne FINNEGAN LAB BLOOD ORDERABLES Final Result [facility] [address] [place] [address], [place] [phone] * XR Chest 2 Views (11/23/2024 6:11 PM EDT) Only the most recent of2 resultswithin the time period is included. Anatomical Region Laterality Modality Body Radiographic Marcie ging 11/24/2024 8:45 AM EDT Impressions 11/24/2024 8:45 AM EDT FINDINGS/IMPRESSION: No pneumonia or pulmonary edema. No pleural effusion or pneumothorax. Cardiac silhouette is normal in size. Degenerative changes seen throughout the bones. Unchanged chronic deformity of the right proximal humerus. -------- FINAL REPORT -------- Dictated By: PRATEEK CALDERON Dictated Date: 11/24/2024 08:45 ET Assigned Physician: PRATEEK CALDERON Reviewed and Electronically Signed By: PRATEEK CALDERON Signed Date: 11/24/2024 08:45 ET Workstation ID: [id number] Transcribed By: Self Edit Transcribed Date: 11/24/2024 08:45 ET Narrative 11/24/2024 8:45 AM EDT XR CHEST 2 VIEWS INDICATION: Shortness of breath TECHNIQUE: XR CHEST 2 VIEWS COMPARISON: 11/17/2024 Procedure Note Prateek Calderon MD - 11/24/2024 XR CHEST 2 VIEWS INDICATION: Shortness of breath TECHNIQUE: XR CHEST 2 VIEWS COMPARISON: 11/17/2024 IMPRESSION: FINDINGS/IMPRESSION: No pneumonia or pulmonary edema. No pleural effusionor pneumothorax. Cardiac silhouette is normal in size. Degenerativechanges seen throughout the bones. Unchanged chronic deformity of theright proximal humerus. -------- FINAL REPORT -------- Dictated By: PRATEEK CALDERON Dictated Date: 11/24/2024 08:45 ET Assigned Physician: PRATEEK CALDERON Reviewed and Electronically Signed By: PRATEEK CALDERON Signed Date: 11/24/2024 08:45 ET Workstation ID: [id number] Transcribed By: Self Edit Transcribed Date: 11/24/2024 08:45 ET Олег Barclay MD IMG XR PROCEDURES Final Result * (ABNORMAL) Urinalysis with reflex microscopic and culture (11/23/2024 5:43 PM EDT) Only the most recent of3 resultswithin the time period is included. Specific [place] Urine 1.023 1.003 - 1.030 LAB URINALYSIS - AUTOMATED METHOD 11/23/2024 6:11 PM [facility] pH, Urine 6.0 5.0 - 8.0 pH LAB URINALYSIS - AUTOMATED METHOD 11/23/2024 6:11 PM [facility] Leukocytes, Urine Negative Negative LAB URINALYSIS - AUTOMATED METHOD 11/23/2024 6:11 PM [facility] Nitrite, Urine Negative Negative LAB URINALYSIS - AUTOMATED METHOD 11/23/2024 6:11 PM [facility] Protein, Urine 30(A) <=Trace mg/dL LAB URINALYSIS - AUTOMATED METHOD 11/23/2024 6:11 PM [facility] Glucose, Urine 100(A) Negative mg/dL LAB URINALYSIS - AUTOMATED METHOD 11/23/2024 6:11 PM [facility] Ketones, Urine Trace(A) Negative mg/dL LAB URINALYSIS - AUTOMATED METHOD 11/23/2024 6:11 PM [facility] Urobilinogen, Urine 1.0 0.2 - 1.0 mg/dL LAB URINALYSIS - AUTOMATED METHOD 11/23/2024 6:11 PM T [facility] Bilirubin, Urine Negative Negative LAB URINALYSIS - AUTOMATED METHOD 11/23/2024 6:11 PM EDT [facility] Blood, Urine Negative Negative LAB URINALYSIS - AUTOMATED METHOD 11/23/2024 6:11 PM [facility] RBC, Urine 1.4 0 - 4 /HPF LAB URINALYSIS - AUTOMATED METHOD 11/23/2024 6:11 PM EDT [facility] WBC, Urine 3.9 0 - 4 /HPF LAB URINALYSIS - AUTOMATED METHOD 11/23/2024 6:11 PM [facility] Squamous Epithelial, Urine 65(H) 0 - 60 /LPF LAB URINALYSIS - AUTOMATED METHOD 11/23/2024 6:11 PM [facility] Bacteria, Urine Negative Negative /HPF LAB URINALYSIS - AUTOMATED METHOD 11/23/2024 6:11 PM [facility] Hyaline Casts, Urine 10.0(H) 0 - 3 /LPF LAB URINALYSIS - AUTOMATED METHOD 11/23/2024 6:11 PM [facility] Urine Urine specimen obtained by clean catch procedure / Unknown Non-blood Collection / Unknown 11/23/2024 5:43 PM EDT 11/23/2024 5:52 PM EDT us Олег Barclay MD LAB URINE ORDERABLES Final Resul t [facility] [address] [place] [address], * [place] urine culture tube (11/23/2024 5:43 PM EDT) Only the most recent of3 resultswithin the time period is included. Extra Tube Hold for add-ons. 11/23/2024 7:01 PM EDT [facility] Comment:Auto resulted. Urine Urine specimen obtained by clean catch procedure / Unknown Non-blood Collection / Unknown 11/23/2024 5:43 PM EDT 11/23/2024 5:52 PM EDT us Олег Barclay MD LAB URINE ORDERABLES Final Resul t Performing Organization Address City/[facility] Co de Phone Number [facility] [address] [place] [address], [place] [phone] * ECG 12 lead (11/23/2024 5:42 PM EDT) Only the most recent of3 resultswithin the time period is included. Ventricular Rate ECG 79 BPM GEMUSE Atrial Rate 79 BPM GEMUSE P-R Interval 166 ms GEMUSE QRS Duration 64 ms GEMUSE Q-T Interval 376 ms GEMUSE QTc 431 ms GEMUSE P Wave Steuben 65 degrees GEMUSE R Steuben 3 degrees GEMUSE T Steuben 69 degrees GEMUSE ECG Interpretation Normal sinus rhythm Low voltage QRS Septal infarct , age undetermined When compared with ECG of 17-NOV-2024 17:42, Septal infarct is now Present Confirmed by OSIRIS MARADIAGA ([id number]) on 11/24/2024 7:32:30 AM GEMUSE 11/23/2024 5:42 PM EDT 11/24/2024 7:32 AM EDT Олег Barclay MD ECG ORDERABLES Final Result Performing Organization Address City/[facility] Co de Phone Number GEMUSE * Hemoglobin A1c (11/23/2024 5:42 PM EDT) Hemoglobin A1C 4.9 <6.5 % LAB CHEMISTRY METHOD 11/26/2024 12:33 PM EDT [facility] Mean Bld Glu Estim. 94 mg/dL LAB CHEMISTRY METHOD 11/26/2024 12:33 PM EDT [facility] Blood Venous blood specimen / Unknown Venipuncture / Unknown 11/23/2024 5:42 PM EDT 11/23/2024 5:52 PM EDT Elliott Burr MD LAB BLOOD ORDERABLES Final Resu lt Performing Organization Address [facility]/ZIP Co de Phone Number [facility] [address] [place] [address], [place] [phone] * ECG-Outside (11/20/2024) Provider Onbase MD ECG ORDERABLES Final Result * Blood Culture, Peripheral #2 (11/17/2024 8:58 PM EDT) Only the most recent of2 resultswithin the time period is included. Culture, Blood No growth at 5 days LAB MICROBIOLOGY METHOD 11/22/2024 10:02 PM EDT [facility] Blood Venous blood specimen / Unknown Venipuncture / Unknown 11/17/2024 8:58 PM EDT 11/17/2024 9:03 PM EDT Andrew Hollingsworth MD LAB MICROBIOLOGY - GENERAL ORDER JACLYN Final Result Performing Organization Address [facility] Co de Phone Number [facility] [address] [place] [address], [place] [phone] * XR Chest 1 View (11/17/2024 7:15 PM EDT) Anatomical Region Laterality Modality Body Radiographic Marcie ging 11/18/2024 8:11 AM EDT Impressions 11/18/2024 8:13 AM EDT No focal pneumonia or edema. -------- FINAL REPORT -------- Dictated By: Anthony Arteaga Dictated Date: 11/18/2024 08:11 ET Assigned Physician: Anthony Arteaga Reviewed and Electronically Signed By: Anthony Arteaga Signed Date: 11/18/2024 08:13 ET Workstation ID: [id number] Transcribed By: Self Edit Transcribed Date: 11/18/2024 08:11 ET Narrative 11/18/2024 8:13 AM EDT EXAMINATION: CHEST CLINICAL INFORMATION: Cough COMPARISON: 11/01/24 TECHNIQUE: Portable frontal sitting view of the chest FINDINGS: There is some rotation to the left. Mild kyphosis. The cardiac size is within normal limits. There is tortuosity of the aorta. There is coronary calcification. No hilar mass, vascular congestion, focal pneumonia or major zone of atelectasis. There is no pleural fluid or pneumothorax. Moderate amount of gas in the visualized upper abdomen. Procedure Note Anthony Arteaga MD - 11/18/2024 EXAMINATION: CHEST CLINICAL INFORMATION: Cough COMPARISON: 11/01/24 TECHNIQUE: Portable frontal sitting view of the chest FINDINGS: There is some rotation to the left. Mild kyphosis. The cardiac size is within normal limits. There is tortuosity of the aorta. There is coronary calcification. No hilar mass, vascular congestion, focal pneumonia or major zone ofatelectasis. There is no pleural fluid or pneumothorax. Moderate amount of gas in the visualized upper abdomen. IMPRESSION: No focal pneumonia or edema. -------- FINAL REPORT -------- Dictated By: Anthony Arteaga Dictated Date: 11/18/2024 08:11 ET Assigned Physician: Anthony Arteaga Reviewed and Electronically Signed By: Anthony Arteaga Signed Date: 11/18/2024 08:13 ET Workstation ID: [id number] Transcribed By: Self Edit Transcribed Date: 11/18/2024 08:11 ET Josesito Hooks MD IMG XR PROCEDURES Final Result * (ABNORMAL) Culture urine (11/17/2024 5:44 PM EDT) Only the most recent of2 resultswithin the time period is included. Culture, Urine >=100,000 CFU/mL Escherichia coli(A) RADHA 11/19/2024 10:58 AM EDT [facility] Urine Urine specimen obtained by clean catch procedure / Unknown Non-blood Collection / Unknown 11/17/2024 5:44 PM EDT 11/17/2024 6:45 PM EDT Narrative Organism Antibiotic Method Susceptibility Escherichia coli Amoxicillin/Clavulanate RADHA 4 ug/ml: Susceptible Escherichia coli Ampicillin/Sulbactam RADHA 4 ug/ml: Susceptible Escherichia coli Piperacillin/Tazobactam RADHA <=4 ug/ml: Susceptible Escherichia coli Cefazolin (Urine) RADHA <=1 ug/ml: Susceptible Escherichia coli Cefoxitin RADHA 8 ug/ml: Susceptible Escherichia coli Ceftazidime RADHA <=0.5 ug/ml: Susceptible Escherichia coli Ceftriaxone RADHA <=0.25 ug/ml: Susceptible Escherichia coli Cefepime RADHA <=0.12 ug/ml: Susceptible Escherichia coli Meropenem RADHA <=0.25 ug/ml: Susceptible Escherichia coli Amikacin RADHA 2 ug/ml: Susceptible Escherichia coli Gentamicin RADHA <=1 ug/ml: Susceptible Escherichia coli Ciprofloxacin RADHA <=0.06 ug/ml: Susceptible Escherichia coli Levofloxacin RDAHA <=0.12 ug/ml: Susceptible Escherichia coli Nitrofurantoin RADHA <=16 ug/ml: Susceptible Escherichia coli Trimethoprim/Sulfamethoxazole RADHA <=20 ug/ml: Susceptible Josesito Hooks MD LAB MICROBIOLOGY - GENERAL ORDER JACLYN Final Result [facility] [address], [place] [id number], [place] [phone] * Nancy blue EDTA (11/17/2024 12:00 AM EDT) Extra Tube Hold for add-ons. 11/17/2024 8:01 PM EDT [facility] Comment:Auto resulted. Blood Venous blood specimen / Unknown 11/17/2024 11/17/2024 6:11 PM EDT Josesito Hooks MD LAB BLOOD ORDERABLES Final Resul t [facility] [address] [place] [address], [place] [phone] * Green NA heparin tube (11/17/2024 12:00 AM EDT) Extra Tube Hold for add-ons. 11/17/2024 8:01 PM EDT [facility] ([facility] Comment:Auto resulted. 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 Do not modify or discontinue any currently active code status orders. * Full Code - Default Date Activated Date Inactivated Comments 11/17/2024 8:41 PM 11/18/2024 7:59 PM This is orde r is used when code status has not been discussed with the patient, or code status is otherwise unknown/unconfirmed To update the patient's code status, place a code status order. Do not modify or discontinue any currently active code status orders. * Full Code Date Activated Date Inactivated Comments 03/02/2024 2:15 PM 03/08/2024 2:03 PM Cutover ord er - Refer to legacy medical record for details and original code status order details. Care Teams [employer] Relationship Specialty Start Date End Date Yary Whitlock MD [address] [place] [id number] PCP - General Internal Medicine 03/02/24
--- OUTSIDE RECORDS SUMMARY | 2025-03-03 20:00 | XMS_ITS | Clinical Summary ---
Author Organization Unknown Care Team Providers Care Highway Design Engineer Name Role Phone TENA CIFUENTES, HITESH Unavailable Unavailable LORIE RN, INOCENCIA Unavailable Unavailab za SKELTON PT, DEBBIE Unavailable Unavailable POORNIMA FISHER HOOP NET, JUAN Unavailable Unavailable READING OT, CODY Unavailable Unavailable JAHAIRA LANCASTER Unavailable Unavailable Payers Payer Name Policy Type Policy Number Effective Date Expira tion Date MEDICARE.NGS.PDGM [id number] Problems Condition Name Condition Details Condition Category Status Onset Date Resolution Date Last Treatment Date Treating Clinician Comments OTHER SEQUELAE OF OTHER NONTRAUMATIC INTRACRANIAL HEMORRHAGE Active 12-31 00:00: 00 MUSCLE WASTING AND ATROPHY, NEC, MULTIPLE SITES Active 11-30 00:00: 00 OTH SYMP AND SIGNS W COGN FNCTNS FOL OTHER NTRM INTCRN HEMOR Active 11-30 00:00: 00 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[place], STAGE 2 Active 9-04 00:00: 00 ADULT FAILURE TO THRIVE Active 11-30 00:00: 00 UNSPECIFIED DEMENTIA, UNSPECIFIED SEVERITY, WITH AGITATION Active 11-30 00:00: 00 UNSPECIFIED DEMENTIA, UNSPECIFIED SEVERITY, WITH ANXIETY Active 11-30 00:00: 00 ESSENTIAL (PRIMARY) HYPERTENSION Active 11-30 00:00: 00 ATHSCL HEART DISEASE OF [place] CORONARY ARTERY W/O ANG PCTRS Active 11-30 00:00: 00 PAROXYSMAL ATRIAL FIBRILLATION Active 11-30 00:00: 00 GASTRO-ESOPH AGEAL REFLUX DISEASE WITHOUT ESOPHAGITIS Active 11-30 00:00: 00 HYPERLIPIDEM IA, UNSPECIFIED Active 11-30 00:00: 00 OLD MYOCARDIAL INFARCTION Active 11-30 00:00: 00 PERSONAL HISTORY OF URINARY (TRACT) INFECTIONS Active 11-30 00:00: 00 HISTORY OF FALLING Active 11-30 00:00: 00 Allergies, Adverse Reactions, Alerts Allergy Name Allergy Type Status Severity Reaction(s) Onset Date Inactive Date Treating Clinician Comments CODEINE Propensity to adverse reactions Active 01-04 12:45: 49 LISINOPRIL Propensity to adverse reactions Active 01-04 12:46: 08 Medications Ordered Medication Name Filled Medication Name Start Date Stop Date Current Medication? Ordering Clinician Indication Dosage Frequency Signature (SIG) Comments Components atorvastati n 80 mg tablet 09-29 00:00: 00 10-16 00:00 :00 No [id number] Per instruc tions Per instructio ns (route: oral) Med Classific ation: Cardiovas cular Therapy Agents metoprolol succinate ER 100 mg tablet,exte nded release 24 hr 09-08 00:00: 00 10-16 00:00 :00 No [id number] Per instruc tions Per instructio ns (route: oral) Med Classific ation: Cardiovas cular Therapy Agents Benicar HCT 40 mg-25 mg tablet 08-04 00:00: 00 10-16 00:00 :00 No [id number] Per instruc tions Per instructio ns (route: oral) Med Classific ation: Cardiovas cular Therapy Agents atorvastati n 80 mg tablet 10-16 00:00: 00 03-06 23:59 :00 No [id number] HLD 1 tablet BEDTIME 1 tablet BEDTIME (route: oral) Med Classific ation: Cardiovas cular Therapy Agents Augmentin 500 mg-125 mg tablet -14 00:00: 00 10-17 23:59 :00 No [id number] UTI 1 tablet EVERY 12 HOURS 1 tablet EVERY 12 HOURS (route: oral) Med Classific ation: Anti-Infe ctive Agents metoprolol succinate ER 100 mg tablet,exte nded release 24 hr 16 00:00: 00 03-06 23:59 :00 No [id number] HTN 1 tablet BEDTIME 1 tablet BEDTIME (route: oral) Med Classific ation: Cardiovas cular Therapy Agents olmesartan 40 mg-amlodipi ne 10 mg-hydrochl orothiazide 25 mg tablet 10-16 00:00: 00 03-06 23:59 :00 No [id number] HTN 1 tablet DAILY 1 tablet DAILY (route: oral) Med Classific ation: Cardiovas cular Therapy Agents atorvastati n 80 mg tablet 2023-05 00:00: 00 11-17 23:59 :00 No [id number] HIGH CHOLESTEROL 1 tablet BEDTIME 1 tablet BEDTIME (route: oral) Med Classific ation: Cardiovas cular Therapy Agents metoprolol tartrate 25 mg tablet 2023-05 00:00: 00 11-17 23:59 :00 No [id number] IRREGULAR HEARTBEAT 1 tablet EVERY 8 HOURS 1 tablet EVERY 8 HOURS (route: oral) Med Classific ation: Cardiovas cular Therapy Agents trazodone 50 mg tablet 2023-05 00:00: 00 11-17 23:59 :00 No [id number] TROUBLE SLEEPING 1 tablet BEDTIME 1 tablet BEDTIME (route: oral) Med Classific ation: Central Nervous System Agents acetaminoph en 325 mg tablet 2023-05 00:00: 00 11-17 23:59 :00 No [id number] PAIN 3 tablet EVERY 8 HOURS 3 tablet EVERY 8 HOURS (route: oral) Med Classific ation: Analgesic , Anti-infl ammatory or Antipyret ic ascorbic acid (vitamin C) 500 mg tablet 2023-05 00:00: 00 04-27 23:59 :00 No [id number] SUPPLEMENT 1 tablet 2 TIMES DAILY 1 tablet 2 TIMES DAILY (route: oral) Med Classific ation: Electroly te Balance-N utritiona l Products aspirin 81 mg tablet,lindsey yed release 2023-05 00:00: 00 11-17 23:59 :00 No [id number] IRREGULAR HEARTBEAT 1 tablet DAILY 1 tablet DAILY (route: oral) Med Classific ation: Hematolog ical Agents docusate sodium 100 mg capsule 2023-05 00:00: 00 11-17 23:59 :00 No [id number] CONSTIPATIO N 1 capsule 2 TIMES DAILY 1 capsule 2 TIMES DAILY (route: oral) Med Classific ation: Gastroint estinal Therapy Agents donepezil 10 mg tablet 2023-05 00:00: 00 11-17 23:59 :00 No [id number] MEMORY 1 tablet BEDTIME 1 tablet BEDTIME (route: oral) Med Classific ation: Cognitive Disorder Therapy melatonin 3 mg tablet 2023-05 00:00: 00 11-17 23:59 :00 No [id number] TROUBLE SLEEPING 1 tablet BEDTIME 1 tablet BEDTIME (route: oral) Med Classific ation: Central Nervous System Agents Multivitami n 50 Plus tablet 2023-05 00:00: 00 11-17 23:59 :00 No [id number] SUPPLEMENT 1 tablet DAILY 1 tablet DAILY (route: oral) Med Classific ation: Electroly te Balance-N utritiona l Products polyethylen e glycol 3350 17 gram/dose oral powder 2023-05 00:00: 00 11-17 23:59 :00 No [id number] CONSTIPATIO N 17 gram DAILY 17 gram DAILY (route: oral) Med Classific ation: Gastroint estinal Therapy Agents thiamine HCl (vitamin B1) 100 mg tablet 2023-05 00:00: 00 11-17 23:59 :00 No [id number] SUPPLEMENT 1 tablet DAILY 1 tablet DAILY (route: oral) Med Classific ation: Electroly te Balance-N utritiona l Products vitamin A 3,000 mcg (10,000 unit) capsule 2023-05 00:00: 00 04-27 23:59 :00 No [id number] SUPPLEMENT 1 capsule DAILY 1 capsule DAILY (route: oral) Med Classific ation: Electroly te Balance-N utritiona l Products Zinc-220 50 mg zinc (220 mg) capsule 2023-05 00:00: 00 11-17 23:59 :00 No [id number] SUPPLEMENT 1 capsule BEDTIME 1 capsule BEDTIME (route: oral) Med Classific ation: Electroly te Balance-N utritiona l Products acetaminoph en 325 mg tablet 11-20 00:00: 00 01-04 00:00 :00 No [id number] PAIN OR FEVER 2 tablet EVERY 6 HOURS 2 tablet EVERY 6 HOURS (route: oral) Med Classific ation: Analgesic , Anti-infl ammatory or Antipyret ic ascorbic acid (vitamin C) 500 mg tablet 11-18 00:00: 00 01-04 00:00 :00 No [id number] SUPPLEMENT 2 tablet DAILY 2 tablet DAILY (route: oral) Med Classific ation: Electroly te Balance-N utritiona l Products aspirin 81 mg tablet,lindsey yed release 11-18 00:00: 00 01-04 00:00 :00 No [id number] BLOOD THINNER 1 tablet DAILY 1 tablet DAILY (route: oral) Med Classific ation: Hematolog ical Agents atorvastati n 80 mg tablet 11-18 00:00: 00 01-04 00:00 :00 No [id number] HIGH CHOLESTEROL 1 tablet BEDTIME 1 tablet BEDTIME (route: oral) Med Classific ation: Cardiovas cular Therapy Agents cefpodoxime 200 mg tablet 11-20 00:00: 00 11-27 23:59 :00 No [id number] UTI 1 tablet 2 TIMES DAILY 1 tablet 2 TIMES DAILY (route: oral) Med Classific ation: Anti-Infe ctive Agents donepezil 10 mg tablet 11-18 00:00: 00 01-04 00:00 :00 No [id number] DEMENTIA 1 tablet BEDTIME 1 tablet BEDTIME (route: oral) Med Classific ation: Cognitive Disorder Therapy metoprolol tartrate 25 mg tablet 11-18 00:00: 00 01-04 00:00 :00 No [id number] IRREGULAR HEART BEAT 1 tablet EVERY 8 HOURS 1 tablet EVERY 8 HOURS (route: oral) Med Classific ation: Cardiovas cular Therapy Agents Multi For Her 18 mg iron-600 mcg-40 mcg capsule 11-18 00:00: 00 01-04 00:00 :00 No [id number] SUPPLEMENT 1 capsule DAILY 1 capsule DAILY (route: oral) Med Classific ation: Electroly te Balance-N utritiona l Products polyethylen e glycol 3350 17 gram/dose oral powder 11-20 00:00: 00 01-04 00:00 :00 No [id number] CONSTIPATIO N 17 gram DAILY 17 gram DAILY (route: oral) Med Classific ation: Gastroint estinal Therapy Agents senna 8.6 mg tablet 11-20 00:00: 00 01-04 00:00 :00 No [id number] CONSTIPATIO N 2 tablet BEDTIME 2 tablet BEDTIME (route: oral) Med Classific ation: Gastroint estinal Therapy Agents trazodone 50 mg tablet 11-18 00:00: 00 01-04 00:00 :00 No [id number] TROUBLE SLEEPING 1 tablet BEDTIME 1 tablet BEDTIME (route: oral) Med Classific ation: Central Nervous System Agents vitamin A 3,000 mcg (10,000 unit) capsule 11-18 00:00: 00 01-04 00:00 :00 No [id number] SUPPLEMENT 1 capsule DAILY 1 capsule DAILY (route: oral) Med Classific ation: Electroly te Balance-N utritiona [employer] Products zinc sulfate 50 mg zinc (220 mg) capsule 11-18 00:00: 00 01-04 00:00 :00 No [id number] SUPPLEMENT 1 capsule DAILY 1 capsule DAILY (route: oral) Med Classific ation: Electroly te Balance-N utrPaciniana [employer] Products acetaminoph en 500 mg tablet 01-04 00:00: 00 Yes [id number] PAIN/FEVER 2 tablet EVERY 8 HOURS 2 tablet EVERY 8 HOURS (route: oral) Med Classific ation: Analgesic , Anti-infl ammatory or Antipyret ic Aricept 10 mg tablet 01-04 00:00: 00 Yes [id number] DEMENTIA 1 tablet BEDTIME 1 tablet BEDTIME (route: oral) Med Classific ation: Cognitive Disorder Therapy atorvastati n 80 mg tablet 01-04 00:00: 00 Yes [id number] HIGH LIPIDS 1 tablet BEDTIME 1 tablet BEDTIME (route: oral) Med Classific ation: Cardiovas cular Therapy Agents hydrochloro thiazide 25 mg tablet 01-04 00:00: 00 Yes [id number] HIGH BLOOD PRESSURE 1 tablet DAILY 1 tablet DAILY (route: oral) Med Classific ation: Cardiovas cular Therapy Agents losartan 50 mg tablet 01-04 00:00: 00 Yes [id number] HIGH BLOOD PRESSURE 1 tablet DAILY 1 tablet DAILY (route: oral) Med Classific ation: Cardiovas cular Therapy Agents metoprolol succinate ER 100 mg tablet,exte nded release 24 hr 01-04 00:00: 00 Yes [id number] HIGH BLOOD PRESSURE 1 tablet DAILY 1 tablet DAILY (route: oral) Med Classific ation: Cardiovas cular Therapy Agents mirtazapine 7.5 mg tablet 01-04 00:00: 00 Yes [id number] APPETITE STIMULANT 1 tablet BEDTIME 1 tablet BEDTIME (route: oral) Med Classific ation: Central Nervous System Agents Multiple Vitamin-Min erals tablet 01-04 00:00: 00 Yes [id number] SUPPLEMENT 1 tablet DAILY 1 tablet DAILY (route: oral) Med Classific ation: Electroly te Balance-N utritiona l Products polyethylen e glycol 3350 17 gram/dose oral powder 01-04 00:00: 00 Yes [id number] CONSTIPATIO N 17 gram DAILY 17 gram DAILY (route: oral) Med Classific ation: Gastroint estinal Therapy Agents Senna Lax 8.6 mg tablet 01-04 00:00: 00 Yes [id number] CONSTIPATIO N 1 tablet BEDTIME 1 tablet BEDTIME (route: oral) Med Classific ation: Gastroint estinal Therapy Agents Vitamin C 500 mg tablet 01-04 00:00: 00 Yes [id number] SUPPLEMENT 1 tablet 2 TIMES DAILY 1 tablet 2 TIMES DAILY (route: oral) Med Classific ation: Electroly te Balance-N utritiona l Products Zinc-220 50 mg zinc (220 mg) capsule 01-04 00:00: 00 Yes [id number] SUPPLEMENT 1 capsule BEDTIME 1 capsule BEDTIME (route: oral) Med Classific ation: Electroly te Balance-N utritiona l Products Vital Signs Vital Name Observation Time Observation Value Commen ts Temperature 2025-01-29 08:43:00.000 98.5 [degF] Temperature 2025-01-24 11:43:00.000 98.3 [degF] Temperature 2025-01-22 13:29:00.000 97 [degF] Temperature 2025-01-22 11:45:00.000 97 [degF] Temperature 2025-01-22 09:53:00.000 97.4 [degF] Temperature 2025-01-17 11:40:00.000 98.2 [degF] Temperature 2025-01-16 06:57:00.000 97.3 [degF] Temperature 2025-01-15 10:17:00.000 97.4 [degF] Temperature 2025-01-12 12:11:00.000 97.3 [degF] Temperature 2025-01-11 08:47:00.000 98 [degF] Temperature 2025-01-09 16:05:00.000 98 [degF] Temperature 2025-01-09 09:22:00.000 97.6 [degF] Temperature 2025-01-04 13:06:00.000 98.2 [degF] BMI (%) 2025-01-04 13:06:00.000 19 kg/m2 Height 2025-01-04 13:06:00.000 60 [in_us] Pulse 2025-01-29 08:42:00.000 88 /min Pulse 2025-01-24 11:43:00.000 60 /min Pulse 2025-01-22 13:29:00.000 76 /min Pulse 2025-01-22 11:45:00.000 80 /min Pulse 2025-01-22 09:53:00.000 75 /min Pulse 2025-01-17 11:40:00.000 69 /min Pulse 2025-01-16 06:57:00.000 74 /min Pulse 2025-01-15 10:17:00.000 64 /min Pulse 2025-01-12 12:11:00.000 74 /min Pulse 2025-01-11 08:47:00.000 67 /min Pulse 2025-01-09 16:05:00.000 81 /min Pulse 2025-01-09 09:22:00.000 65 /min Pulse 2025-01-04 13:06:00.000 74 /min O2 Saturation (%) 2025-01-29 08:43:00.000 98 % O2 Saturation (%) 2025-01-22 13:29:00.000 97 % O2 Saturation (%) 2025-01-22 09:53:00.000 99 % O2 Saturation (%) 2025-01-16 06:58:00.000 97 % O2 Saturation (%) 2025-01-15 10:17:00.000 95 % O2 Saturation (%) 2025-01-12 12:11:00.000 97 % O2 Saturation (%) 2025-01-11 08:47:00.000 96 % O2 Saturation (%) 2025-01-09 16:05:00.000 94 % O2 Saturation (%) 2025-01-09 09:22:00.000 98 % O2 Saturation (%) 2025-01-04 13:06:00.000 97 % Respirations 2025-01-29 08:43:00.000 18 /min Respirations 2025-01-24 11:43:00.000 18 /min Respirations 2025-01-22 13:29:00.000 18 /min Respirations 2025-01-22 11:45:00.000 18 /min Respirations 2025-01-22 09:53:00.000 18 /min Respirations 2025-01-17 11:40:00.000 18 /min Respirations 2025-01-16 06:57:00.000 18 /min Respirations 2025-01-15 10:17:00.000 18 /min Respirations 2025-01-12 12:11:00.000 18 /min Respirations 2025-01-11 08:47:00.000 18 /min Respirations 2025-01-09 16:05:00.000 16 /min Respirations 2025-01-09 09:22:00.000 18 /min Respirations 2025-01-04 13:06:00.000 18 /min Weight (lbs) 2025-01-04 13:06:00.000 98 [lb_av] Systolic Blood Pressure 2025-01-29 08:43:00.000 110 mm [Hg] Systolic Blood Pressure 2025-01-24 11:43:00.000 96 mm[ Hg] Systolic Blood Pressure 2025-01-22 13:29:00.000 122 mm [Hg] Systolic Blood Pressure 2025-01-22 11:45:00.000 120 mm [Hg] Systolic Blood Pressure 2025-01-22 09:53:00.000 102 mm [Hg] Systolic Blood Pressure 2025-01-17 11:40:00.000 112 mm [Hg] Systolic Blood Pressure 2025-01-16 06:57:00.000 128 mm [Hg] Systolic Blood Pressure 2025-01-15 10:17:00.000 108 mm [Hg] Systolic Blood Pressure 2025-01-12 12:11:00.000 124 mm [Hg] Systolic Blood Pressure 2025-01-11 08:47:00.000 90 mm[ Hg] Systolic Blood Pressure 2025-01-09 16:05:00.000 90 mm[ Hg] Systolic Blood Pressure 2025-01-09 09:22:00.000 106 mm [Hg] Systolic Blood Pressure 2025-01-04 13:06:00.000 138 mm [Hg] Diastolic Blood Pressure 2025-01-29 08:43:00.000 58 mm [Hg] Diastolic Blood Pressure 2025-01-24 11:43:00.000 58 mm [Hg] Diastolic Blood Pressure 2025-01-22 13:29:00.000 60 mm [Hg] Diastolic Blood Pressure 2025-01-22 11:45:00.000 62 mm [Hg] Diastolic Blood Pressure 2025-01-22 09:53:00.000 60 mm [Hg] Diastolic Blood Pressure 2025-01-17 11:40:00.000 60 mm [Hg] Diastolic Blood Pressure 2025-01-16 06:57:00.000 68 mm [Hg] Diastolic Blood Pressure 2025-01-15 10:17:00.000 60 mm [Hg] Diastolic Blood Pressure 2025-01-12 12:11:00.000 70 mm [Hg] Diastolic Blood Pressure 2025-01-11 08:47:00.000 50 mm [Hg] Diastolic Blood Pressure 2025-01-09 16:05:00.000 56 mm [Hg] Diastolic Blood Pressure 2025-01-09 09:22:00.000 60 mm [Hg] Diastolic Blood Pressure 2025-01-04 13:06:00.000 60 mm [Hg] Plan of Treatment Planned Activity Planned Date Details Comments Future Scheduled Test PHYSICAL T HERAPIST TO EVALUATE FOR STRENGTHENING AND EDUCATION [code = PHYSICAL THERAPIST TO EVALUATE FOR STRENGTHENING AND EDUCATION] Future Scheduled Test SPEECH THE RAPIST TO EVALUATE FOR SWALLOWING, MEMORY AND EDUCATION [code = SPEECH THERAPIST TO EVALUATE FOR SWALLOWING, MEMORY AND EDUCATION] Future Scheduled Test OCCUPATION AL THERAPIST TO EVALUATE FOR ADLS AND EDUCATION [code = OCCUPATIONAL THERAPIST TO EVALUATE FOR ADLS AND EDUCATION] Future Scheduled Test GENITOURIN SJ MANAGEMENT; RN TO ASSESS AND TEACH, FLIGHT ENGINEER/TAKE AWAY ATTENDANT TO OBSERVE AND TEACH RELATED TO ALTERED GENITOURINARY STATUS TO MINIMIZE COMPLICATIONS AND REDUCE HOSPITALIZATION. [code = GENITOURINARY MANAGEMENT; RN TO ASSESS AND TEACH, FLIGHT ENGINEER/TAKE AWAY ATTENDANT TO OBSERVE AND TEACH RELATED TO ALTERED GENITOURINARY STATUS TO MINIMIZE COMPLICATIONS AND REDUCE HOSPITALIZATION.] Future Scheduled Test NEUROLOGIC AL SYSTEM MANAGEMENT; RN TO ASSESS AND TEACH, TAKE AWAY ATTENDANT/FLIGHT ENGINEER TO OBSERVE AND TEACH RELATED TO ALTERED NEUROLOGICAL STATUS TO MINIMIZE COMPLICATIONS AND REDUCE HOSPITALIZATION. NONTRAUMATIC INTRACEREBRAL HEMMORHAGE [code = NEUROLOGICAL SYSTEM MANAGEMENT; RN TO ASSESS AND TEACH, TAKE AWAY ATTENDANT/FLIGHT ENGINEER TO OBSERVE AND TEACH RELATED TO ALTERED NEUROLOGICAL STATUS TO MINIMIZE COMPLICATIONS AND REDUCE HOSPITALIZATION. NONTRAUMATIC INTRACEREBRAL HEMMORHAGE] Future Scheduled Test RN TO OBSE RVE, ASSESS, EVALUATE, AND DEVELOP AN INDIVIDUALIZED PLAN OF CARE. AGENCY MAY ACCEPT ORDERS FROM CONSULTING PHYSICIANS. RN TO OBSERVE AND ASSESS, FLIGHT ENGINEER/TAKE AWAY ATTENDANT TO OBSERVE FOR RISK FOR FALLS AND INSTRUCT IN FALL PREVENTION, HOME SAFETY, MEDICATION MANAGEMENT, INFECTION PREVENTION, AND NUTRITION MANAGEMENT. RN/FLIGHT ENGINEER/TAKE AWAY ATTENDANT NURSE MAY PERFORM O2 SATURATION LEVEL ON ADMISSION AND PRN FOR RN TO ASSESS/FLIGHT ENGINEER TO OBSERVE PATIENT, WITH NOTIFICATION TO THE PHYSICIAN IF SATURATION IS 90% IN THE ABSENCE OF MORE SPECIFIC PARAMETERS FROM THE PHYSICIAN. AGENCY MAY PERFORM A RESUMPTION OF CARE VISIT FOLLOWING ANY HOSPITAL ADMISSION. RN/FLIGHT ENGINEER/TAKE AWAY ATTENDANT TO MONITOR CO-MORBID CONDITIONS LISTED ON THE PLAN OF CARE AND ANY NEW CONDITIONS THAT PRESENT THEMSELVES DURING THIS EPISODE TO IDENTIFY CHANGES AND INTERVENE TO MINIMIZE COMPLICATIONS. [code = RN TO OBSERVE, ASSESS, EVALUATE, AND DEVELOP AN INDIVIDUALIZED PLAN OF CARE. AGENCY MAY ACCEPT ORDERS FROM CONSULTING PHYSICIANS. RN TO OBSERVE AND ASSESS, FLIGHT ENGINEER/TAKE AWAY ATTENDANT TO OBSERVE FOR RISK FOR FALLS AND INSTRUCT IN FALL PREVENTION, HOME SAFETY, MEDICATION MANAGEMENT, INFECTION PREVENTION, AND NUTRITION MANAGEMENT. RN/FLIGHT ENGINEER/TAKE AWAY ATTENDANT NURSE MAY PERFORM O2 SATURATION LEVEL ON ADMISSION AND PRN FOR RN TO ASSESS/FLIGHT ENGINEER TO OBSERVE PATIENT, WITH NOTIFICATION TO THE PHYSICIAN IF SATURATION IS 90% IN THE ABSENCE OF MORE SPECIFIC PARAMETERS FROM THE PHYSICIAN. AGENCY MAY PERFORM A RESUMPTION OF CARE VISIT FOLLOWING ANY HOSPITAL ADMISSION. RN/FLIGHT ENGINEER/TAKE AWAY ATTENDANT TO MONITOR CO-MORBID CONDITIONS LISTED ON THE PLAN OF CARE AND ANY NEW CONDITIONS THAT PRESENT THEMSELVES DURING THIS EPISODE TO IDENTIFY CHANGES AND INTERVENE TO MINIMIZE COMPLICATIONS.] Future Scheduled Test DEMENTIA M ANAGEMENT WITH BEHAVIORAL DISTURBANCES; RN TO ASSESS AND TEACH, TAKE AWAY ATTENDANT/FLIGHT ENGINEER TO OBSERVE AND TEACH AND TO PROVIDE EDUCATION ON DEMENTIA WITH BEHAVIORAL DISTURBANCES. [code = DEMENTIA MANAGEMENT WITH BEHAVIORAL DISTURBANCES; RN TO ASSESS AND TEACH, TAKE AWAY ATTENDANT/FLIGHT ENGINEER TO OBSERVE AND TEACH AND TO PROVIDE EDUCATION ON DEMENTIA WITH BEHAVIORAL DISTURBANCES.] Future Scheduled Test PAIN MANAG EMENT; RN TO ASSESS AND TEACH, TAKE AWAY ATTENDANT/FLIGHT ENGINEER TO OBSERVE AND TEACH AND PROVIDE EDUCATION ON PAIN MANAGEMENT TECHNIQUES. [code = PAIN MANAGEMENT; RN TO ASSESS AND TEACH, TAKE AWAY ATTENDANT/FLIGHT ENGINEER TO OBSERVE AND TEACH AND PROVIDE EDUCATION ON PAIN MANAGEMENT TECHNIQUES.] Future Scheduled Test RN/FLIGHT ENGINEER/TAKE AWAY ATTENDANT TO PERFORM/TEACH PATIENT/CAREGIVER WOUND CARE PRESSURE INJURY TO COCCYX: CLEANSE WITH NORMAL SALINE, APPLY SILVER CALCIUM ALGINATE, COVER WITH PROTECTIVE DRESSING, CHANGE DRESSING EVERY 3 DAYS AND PRN FOR SOILAGE OR DISPLACEMENT SON AND GRANDDAUGHTER TO CHANGE IN NURSING ABSENCE [code = RN/FLIGHT ENGINEER/TAKE AWAY ATTENDANT TO PERFORM/TEACH PATIENT/CAREGIVER WOUND CARE PRESSURE INJURY TO COCCYX: CLEANSE WITH NORMAL SALINE, APPLY SILVER CALCIUM ALGINATE, COVER WITH PROTECTIVE DRESSING, CHANGE DRESSING EVERY 3 DAYS AND PRN FOR SOILAGE OR DISPLACEMENT SON AND GRANDDAUGHTER TO CHANGE IN NURSING ABSENCE] Future Scheduled Test RISK FOR H OSPITALIZATION; RN TO ASSESS/TEACH, TAKE AWAY ATTENDANT/FLIGHT ENGINEER TO OBSERVE/TEACH PATIENT/CAREGIVER ON RISK FOR HOSPITALIZATION/EMERGENCY ROOM VISITS, TEACH SIGNS AND SYMPTOMS THAT PUT PATIENT AT RISK, WHEN TO NOTIFY NURSE/PHYSICIAN OF COMPLICATIONS/DECLINE, AND WHEN TO CALL 911. [code = RISK FOR HOSPITALIZATION; RN TO ASSESS/TEACH, TAKE AWAY ATTENDANT/FLIGHT ENGINEER TO OBSERVE/TEACH PATIENT/CAREGIVER ON RISK FOR HOSPITALIZATION/EMERGENCY ROOM VISITS, TEACH SIGNS AND SYMPTOMS THAT PUT PATIENT AT RISK, WHEN TO NOTIFY NURSE/PHYSICIAN OF COMPLICATIONS/DECLINE, AND WHEN TO CALL 911.] Future Scheduled Test CARDIOVASC ULAR SYSTEM; RN TO ASSESS/TEACH, FLIGHT ENGINEER/TAKE AWAY ATTENDANT TO OBSERVE/TEACH RELATED TO ALTERED CARDIOVASCULAR STATUS TO MINIMIZE COMPLICATIONS AND REDUCE HOSPITALIZATION. [code = CARDIOVASCULAR SYSTEM; RN TO ASSESS/TEACH, FLIGHT ENGINEER/TAKE AWAY ATTENDANT TO OBSERVE/TEACH RELATED TO ALTERED CARDIOVASCULAR STATUS TO MINIMIZE COMPLICATIONS AND REDUCE HOSPITALIZATION.] Future Scheduled Test SKIN INTEG RITY RN TO ASSESS AND TEACH, FLIGHT ENGINEER/TAKE AWAY ATTENDANT TO OBSERVE AND TEACH INTEGUMENTARY STATUS TO IDENTIFY CHANGES AND INTERVENE TO MINIMIZE COMPLICATIONS. PROVIDE SKILLED TEACHING OF GENERAL WOUND AND SKIN CARE AND PREVENTION RELATED TO ACTUAL ALTERED SKIN INTEGRITY [code = SKIN INTEGRITY RN TO ASSESS AND TEACH, FLIGHT ENGINEER/TAKE AWAY ATTENDANT TO OBSERVE AND TEACH INTEGUMENTARY STATUS TO IDENTIFY CHANGES AND INTERVENE TO MINIMIZE COMPLICATIONS. PROVIDE SKILLED TEACHING OF GENERAL WOUND AND SKIN CARE AND PREVENTION RELATED TO ACTUAL ALTERED SKIN INTEGRITY] Future Scheduled Test RN TO ASSE SS AND TEACH, FLIGHT ENGINEER/TAKE AWAY ATTENDANT TO OBSERVE AND TEACH INTEGUMENTARY STATUS RELATED TO PRESSURE INJURY MANAGEMENT TO IDENTIFY CHANGES AND INTERVENE TO MINIMIZE COMPLICATIONS. PROVIDE SKILLED TEACHING RELATED TO ALTERED SKIN INTEGRITY TO INCLUDE OFFLOADING, FREQUENT POSITION CHANGES, KEEP SKIN CLEAN AND DRY TO PREVENT SKIN BREAKDOWN AND MINIMIZE FRICTION AND SHEARING. REPORT SIGNIFICANT CHANGES IN STATUS TO PHYSICIAN FOR EARLY INTERVENTION. [code = RN TO ASSESS AND TEACH, FLIGHT ENGINEER/TAKE AWAY ATTENDANT TO OBSERVE AND TEACH INTEGUMENTARY STATUS RELATED TO PRESSURE INJURY MANAGEMENT TO IDENTIFY CHANGES AND INTERVENE TO MINIMIZE COMPLICATIONS. PROVIDE SKILLED TEACHING RELATED TO ALTERED SKIN INTEGRITY TO INCLUDE OFFLOADING, FREQUENT POSITION CHANGES, KEEP SKIN CLEAN AND DRY TO PREVENT SKIN BREAKDOWN AND MINIMIZE FRICTION AND SHEARING. REPORT SIGNIFICANT CHANGES IN STATUS TO PHYSICIAN FOR EARLY INTERVENTION.] Future Scheduled Test ARRHYTHMIA MANAGEMENT; RN TO ASSESS AND TEACH, FLIGHT ENGINEER/TAKE AWAY ATTENDANT TO OBSERVE AND TEACH WARNING SIGNS AND SYMPTOMS TO AVOID HOSPITALIZATION. [code = ARRHYTHMIA MANAGEMENT; RN TO ASSESS AND TEACH, FLIGHT ENGINEER/TAKE AWAY ATTENDANT TO OBSERVE AND TEACH WARNING SIGNS AND SYMPTOMS TO AVOID HOSPITALIZATION.] Future Scheduled Test MEDICATION MANAGEMENT; RN/FLIGHT ENGINEER/TAKE AWAY ATTENDANT TO REVIEW MEDICATIONS FOR INTERACTIONS, EFFECTIVENESS OF DRUG THERAPY, AND SIGNS/SYMPTOMS OF ADVERSE REACTIONS. MAY INSTRUCT AND REINFORCE MEDICATION TEACHING RELATED TO THE USE OF MEDICATIONS, DOSAGE, FREQUENCY, PURPOSE, SIDE EFFECTS, AND TO REPORT COMPLICATIONS. [code = MEDICATION MANAGEMENT; RN/FLIGHT ENGINEER/TAKE AWAY ATTENDANT TO REVIEW MEDICATIONS FOR INTERACTIONS, EFFECTIVENESS OF DRUG THERAPY, AND SIGNS/SYMPTOMS OF ADVERSE REACTIONS. MAY INSTRUCT AND REINFORCE MEDICATION TEACHING RELATED TO THE USE OF MEDICATIONS, DOSAGE, FREQUENCY, PURPOSE, SIDE EFFECTS, AND TO REPORT COMPLICATIONS.] Future Scheduled Test AGENCY MAY PERFORM A RESUMPTION OF CARE VISIT FOLLOWING ANY HOSPITAL ADMISSION. OT TO EVALUATE, OBSERVE / ASSESS, AND MONITOR, LEI TO OBSERVE AND MONITOR, PROVIDE SKILLED THERAPEUTIC INTERVENTION, ACTIVITY, EDUCATION, AND TRAINING TO ADDRESS; BED TRANSFERS (OT/PHYSICIAN OFFICE SECRETARY) CHAIR TRANSFERS (OT/LEI) HOME ACTIVITY / EXERCISE PROGRAM (OT/LEI) THERAPEUTIC EXERCISE (OT/PHYSICIAN OFFICE SECRETARY) OT/PHYSICIAN OFFICE SECRETARY TO MONITOR FOR AND REPORT EARLY SIGNS OF ANTICOAGULANT TOXICITY TO THE PHYSICIAN AND/OR THE RN CLINICAL NUTRITIONAL CHEMIST FOR PHYSICIAN NOTIFICATION AND TO PROVIDE PATIENT/CAREGIVER EDUCATION ON ANTICOAGULANT THERAPY OT/PHYSICIAN OFFICE SECRETARY TO MONITOR AND EDUCATE ON OXYGEN SATURATION DURING ADLS/IADLS, NOTIFY PHYSICIAN AND/OR THE RN CLINICAL NUTRITIONAL CHEMIST FOR PHYSICIAN NOTIFICATION AND IF O2 SATS BELOW 90% AFTER 10 MIN OF REST. OT/PHYSICIAN OFFICE SECRETARY MAY EDUCATE ON PAIN MANAGEMENT CLINICALLY INDICATED OT/PHYSICIAN OFFICE SECRETARY TO MONITOR FOR SIGNS AND SYMPTOMS OF UTI AND EDUCATE PATIENT/CAREGIVER TO MINIMIZE RISK OF DEVELOPING A UTI. OT / PHYSICIAN OFFICE SECRETARY TO IDENTIFY FALL RISK FACTORS; EDUCATE THE PATIENT/CAREGIVER ON WAYS TO REDUCE FALL RISK FACTORS AND ESTABLISH HOME EXERCISE PROGRAM TO MINIMIZE FALL RISK. MAY TEACH THE PATIENT FLOOR RECOVERY WHEN CLINICALLY APPROPRIATE. OT/PHYSICIAN OFFICE SECRETARY TO EDUCATE ON PRESSURE INJURY AND PREVENTION [code = AGENCY MAY PERFORM A RESUMPTION OF CARE VISIT FOLLOWING ANY HOSPITAL ADMISSION. OT TO EVALUATE, OBSERVE / ASSESS, AND MONITOR, PHYSICIAN OFFICE SECRETARY TO OBSERVE AND MONITOR, PROVIDE SKILLED THERAPEUTIC INTERVENTION, ACTIVITY, EDUCATION, AND TRAINING TO ADDRESS; BED TRANSFERS (OT/PHYSICIAN OFFICE SECRETARY) CHAIR TRANSFERS (OT/PHYSICIAN OFFICE SECRETARY) HOME ACTIVITY / EXERCISE PROGRAM (OT/LEI) THERAPEUTIC EXERCISE (OT/LEI) OT/LEI TO MONITOR FOR AND REPORT EARLY SIGNS OF ANTICOAGULANT TOXICITY TO THE PHYSICIAN AND/OR THE RN CLINICAL NUTRITIONAL CHEMIST FOR PHYSICIAN NOTIFICATION AND TO PROVIDE PATIENT/CAREGIVER EDUCATION ON ANTICOAGULANT THERAPY OT/PHYSICIAN OFFICE SECRETARY TO MONITOR AND EDUCATE ON OXYGEN SATURATION DURING ADLS/IADLS, NOTIFY PHYSICIAN AND/OR THE RN CLINICAL NUTRITIONAL CHEMIST FOR PHYSICIAN NOTIFICATION AND IF O2 SATS BELOW 90% AFTER 10 MIN OF REST. OT/LEI MAY EDUCATE ON PAIN MANAGEMENT CLINICALLY INDICATED OT/PHYSICIAN OFFICE SECRETARY TO MONITOR FOR SIGNS AND SYMPTOMS OF UTI AND EDUCATE PATIENT/CAREGIVER TO MINIMIZE RISK OF DEVELOPING A UTI. OT / LEI TO IDENTIFY FALL RISK FACTORS; EDUCATE THE PATIENT/CAREGIVER ON WAYS TO REDUCE FALL RISK FACTORS AND ESTABLISH HOME EXERCISE PROGRAM TO MINIMIZE FALL RISK. MAY TEACH THE PATIENT FLOOR RECOVERY WHEN CLINICALLY APPROPRIATE. OT/LEI TO EDUCATE ON PRESSURE INJURY AND PREVENTION] Future Scheduled Test AGENCY MAY PERFORM A RESUMPTION OF CARE VISIT FOLLOWING ANY HOSPITAL ADMISSION. ST TO EVALUATE, ASSESS AND MONITOR, PROVIDE SKILLED THERAPEUTIC INTERVENTION, ACTIVITY, EDUCATION, AND TRAINING TO ADDRESS: ST TO PROVIDE EDUCATION FOR NEW ONSET COGNITIVE DEFICIT FOLLOWING ACUTE INTRACRANIAL HEMORRHAGE ST TO PROVIDE EDUCATION ON COMPENSATORY STRATEGIES FOR IMPROVED COMMUNICATION ST TO IDENTIFY FALL RISK FACTORS; EDUCATE THE PATIENT/CAREGIVER ON WAYS TO REDUCE FALL RISK FACTORS. ST MAY EDUCATE ON PAIN MANAGEMENT CLINICALLY INDICATED, INCLUDING NON-PHARMACOLOGICAL PAIN REDUCTION TECHNIQUES (RELAXATION/DISTRACTION/REPOSITIONING/BIO FEEDBACK) FOR PAIN MANAGEMENT HIGH RISK FOR HOSPITALIZATION (ST) ST TO INSTRUCT PATIENT/CAREGIVER ON RISK FOR HOSPITALIZATION/EMERGENCY ROOM VISITS, TEACH SIGNS AND SYMPTOMS THAT PUT PATIENT AT RISK, WHEN TO NOTIFY NURSE/PHYSICIAN OF COMPLICATIONS/DECLINE, AND WHEN TO CALL 911. [code = AGENCY MAY PERFORM A RESUMPTION OF CARE VISIT FOLLOWING ANY HOSPITAL ADMISSION. ST TO EVALUATE, ASSESS AND MONITOR, PROVIDE SKILLED THERAPEUTIC INTERVENTION, ACTIVITY, EDUCATION, AND TRAINING TO ADDRESS: ST TO PROVIDE EDUCATION FOR NEW ONSET COGNITIVE DEFICIT FOLLOWING ACUTE INTRACRANIAL HEMORRHAGE ST TO PROVIDE EDUCATION ON COMPENSATORY STRATEGIES FOR IMPROVED COMMUNICATION ST TO IDENTIFY FALL RISK FACTORS; EDUCATE THE PATIENT/CAREGIVER ON WAYS TO REDUCE FALL RISK FACTORS. ST MAY EDUCATE ON PAIN MANAGEMENT CLINICALLY INDICATED, INCLUDING NON-PHARMACOLOGICAL PAIN REDUCTION TECHNIQUES (RELAXATION/DISTRACTION/REPOSITIONING/BIO FEEDBACK) FOR PAIN MANAGEMENT HIGH RISK FOR HOSPITALIZATION (ST) ST TO INSTRUCT PATIENT/CAREGIVER ON RISK FOR HOSPITALIZATION/EMERGENCY ROOM VISITS, TEACH SIGNS AND SYMPTOMS THAT PUT PATIENT AT RISK, WHEN TO NOTIFY NURSE/PHYSICIAN OF COMPLICATIONS/DECLINE, AND WHEN TO CALL 911.] Goal Patient Goal - SLEEP, STRENG TH, SPEAKING Goal Provider Goal - Goal Provider Goal - Goal Provider Goal - Goal Provider Goal - PATIENT / CAREGIVER WILL VERBALIZE/DEMONSTRATE UNDERSTANDING OF MEASURES TO MANAGE ALTERED GENITOURINARY STATUS BY END OF EPISODE. Goal Provider Goal - PATIENT / CAREGIVER WILL VERBALIZE/DEMONSTRATE UNDERSTANDING OF MEASURES TO MANAGE ALTERED NEUROLOGICAL STATUS BY EOE Goal Provider Goal - A PLAN OF CARE WILL BE ESTABLISHED THAT MEETS THE PATIENT S NEEDS. PATIENT WILL DEMONSTRATE OXYGEN SATURATION WITHIN NORMAL LIMITS OR PATIENT S OPTIMAL LEVEL ESTABLISHED BY THE PHYSICIAN THROUGHOUT CARE. CHANGES TO CO-MORBID CONDITIONS AND ANY NEW CONDITIONS WILL BE IDENTIFIED AND REPORTED TO THE PHYSICIAN. Goal Provider Goal - FAMILY / CAREGIVERS WILL VERBALIZE/DEMONSTRATE DEMENTIA MANAGEMENT TECHNIQUES BY END OF EPISODE. Goal Provider Goal - PATIENT / CAREGIVER WILL VERBALIZE / DEMONSTRATE UNDERSTANDING OF PAIN CONTROL MEASURES BY EOE Goal Provider Goal - PATIENT / CAREGIVER WILL VERBALIZE / DEMONSTRATE ABILITY TO PERFORM WOUND CARE. WOUND STATUS WILL IMPROVE EVIDENCED BY A DECREASE IN SIZE, DRAINAGE, ABSENCE OF INFECTION, AND DECREASED PAIN BY END OF EPISODE. Goal Provider Goal - PATIENT/CAREGIVER WILL VERBALIZE UNDERSTANDING OF SIGNS AND SYMPTOMS THAT PUT THE PATIENT AT RISK FOR HOSPITALIZATION /EMERGENCY ROOM VISITS, WHEN TO NOTIFY NURSE/PHYSICIAN OF COMPLICATIONS/DECLINE AND WHEN TO CALL 911. Goal Provider Goal - PATIENT / CAREGIVER WILL VERBALIZE/DEMONSTRATE UNDERSTANDING OF MEASURES TO MANAGE ALTERED CARDIOVASCULAR STATUS BY EOE. Goal Provider Goal - CHANGES IN SKIN INTEGRITY STATUS WILL BE IDENTIFIED AND REPORTED TO THE PHYSICIAN FOR PROMPT INTERVENTION. PATIENT / CAREGIVER WILL VERBALIZE/DEMONSTRATE ADEQUATE KNOWLEDGE OF INTEGUMENTARY STATUS AND APPROPRIATE MEASURES TO PROMOTE SKIN INTEGRITY AND PREVENT INJURY BY EOE Goal Provider Goal - CHANGES IN SKIN INTEGRITY STATUS RELATED TO PRESSURE INJURY MANAGEMENT WILL BE IDENTIFIED AND REPORTED TO THE PHYSICIAN FOR PROMPT INTERVENTION. PATIENT / CAREGIVER WILL VERBALIZE/DEMONSTRATE ADEQUATE KNOWLEDGE OF INTEGUMENTARY STATUS AND APPROPRIATE MEASURES TO PROMOTE SKIN INTEGRITY AND PREVENT INJURY BY EOE Goal Provider Goal - PATIENT / CAREGIVER WILL VERBALIZE/DEMONSTRATE AN ABILITY TO ADHERE TO SELF-MANAGEMENT OF HEART ARRHYTHMIA TO MINIMIZE COMPLICATIONS AND AVOID HOSPITALIZATION BY END OF EPISODE. Goal Provider Goal - PATIENT/CAREGIVER TO VERBALIZE, AND CONSISTENTLY DEMONSTRATE EFFECTIVE, SAFE MANAGEMENT OF MEDICATION INCLUDING KNOWLEDGE OF EFFECTIVENESS, POTENTIAL SIDE EFFECTS AND DRUG REACTIONS AND WHEN TO CONTACT THE APPROPRIATE CARE PROVIDER. PATIENT/CAREGIVER WILL BE ABLE TO VERBALIZE UNDERSTANDING OF MEDICATION REGIMEN AND ACCURATELY TAKE MEDICATIONS PRESCRIBED WITHOUT ADVERSE EFFECTS BY EOE Goal Provider Goal - OT LTG: PATIENT WILL DEMONSTRATE IMPROVED ABILITY TO PERFORM BED TRANSFERS IN ORDER TO REDUCE RISK OF SKIN BREAKDOWN AND TO IMPROVE PARTICIPATION IN ADLS FROM MOD A TO CGA WITHIN 8 WEEKS OT STG: PATIENT WILL DEMONSTRATE IMPROVED ABILITY TO PERFORM CHAIR TRANSFERS WITH MINIMAL ASSISTANCE WITHIN 4 WEEKS. OT LTG: PATIENT WILL DEMONSTRATE IMPROVED ABILITY TO PERFORM CHAIR TRANSFERS TO REDUCE THE RISK OF SKIN BREAKDOWN AND IMPROVE PARTICIPATION IN ADLS FROM MOD A TO SBA WITHIN 8 WEEKS OT LTG: CAREGIVER WILL BE ABLE TO DEMONSTRATE BUE STRENGTH EXERCISES / ACTIVITIES FOR IMPROVED BUE STRENGTH FROM UNABLE TO IND WITHIN 8 WEEKS. OT LTG: PATIENT WILL DEMONSTRATE IMPROVED BUE MUSCLE STRENGTH EVIDENCED BY AN IMPROVEMENT IN MMT/FUNCTIONAL STRENGTH FROM 3/5 TO 4-/5 WITHIN 8 WEEKS IN ORDER TO IMPROVE INDEPENDENCE WITH FUNCTIONAL TRANSFERS OT GOAL: PATIENT WILL NOT EXHIBIT SIGNS AND SYMPTOMS OF ANTICOAGULANT TOXICITY THROUGHOUT THE EPISODE OF CARE. OT LTG: PATIENT WILL MAINTAIN OXYGEN SATURATION WITHIN PHYSICIAN ORDERED PARAMETERS THROUGHOUT THE EPISODE OF CARE. OT LTG: PATIENT WILL DEMONSTRATE UNDERSTANDING OF PAIN MANAGEMENT TECHNIQUES NEEDED DURING EPISODE OF CARE OT GOAL: PATIENT WILL NOT EXHIBIT SIGNS AND SYMPTOMS OF UTI THROUGHOUT THE EPISODE OF CARE. OT LTG: PATIENT/CAREGIVER WILL BE ABLE TO IMPLEMENT RECOMMENDATIONS SPECIFIC TO FALL REDUCTION FOR IMPROVED ADL/IADL COMPLETION AND HOME SAFETY BY END OF EPISODE. OT LTG: CAREGIVER WILL BE ABLE TO VERBALIZE UNDERSTANDING OF PRESSURE INJURY PREVENTION, PRESSURE RELIEF AND SELF-MANAGEMENT BY END OF EPISODE Goal Provider Goal - ST STG : PATIENT WILL IMPROVE COGNITIVE FUNCTION FOR IMPROVED ABILITY TO MAKE NEEDS KNOWN, SAFETY AND QUALITY OF LIFE FROM MOD-MAX TO MOD EVIDENCE BY IMPROVED MEMORY AND EXECUTIVE FUNCTION WITHIN [address] LTG: PATIENT WILL IMPROVE COGNITIVE FUNCTION FOR IMPROVED ABILITY TO MAKE NEEDS KNOWN, SAFETY AND QUALITY OF LIFE FROM MOD-MAX TO MIN -MOD EVIDENCE BY IMPROVED MEMORY AND EXECUTIVE FUNCTION WITHIN [address] STG: PT WILL DEMONSTRATE IMPROVED USE OF COMPENSATORY STRATEGIES FOR IMPROVED COMMUNICATION EVIDENCED BY IMPROVED VERBALEXPRESSIONFROM MOD-MAX TO MOD WITHIN [address] LTG: PT WILL DEMONSTRATE IMPROVED USE OF COMPENSATORY STRATEGIES FOR IMPROVED COMMUNICATION EVIDENCED BY IMPROVED VERBALEXPRESSIONFROM MOD-MAX TO MIN-MOD WITHIN [address] LTG: PATIENT/CAREGIVER WILL DEMONSTRATE ADHERENCE TO FALL REDUCTION SELF-MANAGEMENT AND REDUCING FALL RISK FACTORS TO MINIMIZE FALL RISK BY END OF EPISODE . ST LTG: PATIENT WILL DEMONSTRATE UNDERSTANDING OF PAIN MANAGEMENT TECHNIQUES EVIDENCED BY REDUCED PAIN ST GOAL: PATIENT/CAREGIVER WILL VERBALIZE UNDERSTANDING OF SIGNS AND SYMPTOMS THAT PUT THE PATIENT AT RISK FOR HOSPITALIZATION /EMERGENCY ROOM VISITS, WHEN TO NOTIFY THE NURSE/PHYSICIAN OF COMPLICATIONS/DECLINE AND WHEN TO CALL 911. Progress Notes Progress Notes <paragraph>[Visit Date: 2024 by INOCENCIA MELO RN]:</paragraph><paragraph>SNV FOR CARDIAC MANAGEMENT </paragraph><paragraph></paragraph><paragraph>PATIENT MUCH IMPROVED, BP STABLE, PATIENT MORE ALERT, CONTINUES WITH SHORT TERM MEMORY LOSS, AND WORSENING DEMENTIA. PLEASANT THIS VISIT ALERT AND ORIENTED X2, NOT AGITATED DURING VISIT. ASSESSED BOTTOM, WOUND HEALED, RESOLVED IN INTEGUMENTARY SECTION. SON REPORTS PATIENT USING WALKER NOW, STRONGER, AND DOESN'T USE WHEELCHAIR MUCH. SON REPORTS CONTINUED INCONTINENCE OF BOWEL AND BLADDER, BUT THAT PATIENT REMEMBERS PREVIOUS ROUTINE, SO SHE CHANGES IN THE BATHROOM. SON AND PATIENT BOTH REPORT DIFFICULTY WITH SHOWERING YESTERDAY. SON REPORTS MOTHER BECAME RESISTIVE DURING THE SHOWER, PATIENT REPORTS FEELING WEIRD THAT HER SON IS SHOWERING HER, PROVIDED SUPPORT. PATIENT EATING SOFT FOODS, SHREDDED/FINELY CHOPPED MEATS, AND SON REPORTS APPETITE IMPROVEMENT. SON REPORTS PATIENT FORGETTING SHE ATE BREAKFAST 10 MINUTES AFTER SHE EATS. PATIENT IS DRINKING WELL, SON REPORTS SHE DRINKS JUICE, MILK, AND WATER. REVIEWED MEDICATIONS WITH NO CHANGES OR ISSUES AT THIS TIME. SON REPORTS PCP VISUT WITH DR WALTON TOMORROW AT 1:15 PM. REVIEWED FALL PRECAUTIONS, BLEEDING PRECAUTIONS, WHEN TO CALL [facility], AND WHEN TO CALL 911. PATIENT CONTINUES TO BE HOMEBOUND DUE TO WEAKNESS, POOR COGNITION, AND NEEDING ASSISTANCE TO LEAVE HOME.</paragraph> Encounters Start Date/Time End Date/Time Encounter Type Admission Type Attending [facility] Care Department Encounter ID Discharge Date Discharge Status Discharge Condition Discharge Reason Percent Goals Met 2025-01-04 00:00:00 2025-03-04 00:00:00 Outpatient INOCENCIA TIRADO [facility] [id number] 6.12
== END 2025-01-30 16:06 | disposition home or self-care (01) ==
LOC: HO.HMCC 13:15
PROVIDERS: PCP Internal Medicine; Visit Provider Internal Medicine
DX: I48.91 Unspecified atrial fibrillation (principal); F03.90 Unspecified dementia, unspecified severity, without behavioral disturbance, psychotic disturbance, mood disturbance, and anxiety; I25.2 Old myocardial infarction

== ENCOUNTER → 2025-01-30 13:14 | Outpatient (BNVA) | payer MEDICARE, SELFPAY | PROVIDERS: PCP Internal Medicine; Visit Provider Internal Medicine | DX: I21.4 Non-ST elevation (NSTEMI) myocardial infarction (principal); F03.90 Unspecified dementia, unspecified severity, without behavioral disturbance, psychotic disturbance, mood disturbance, and anxiety; I48.91 Unspecified atrial fibrillation | CPT/HCPCS: 96127; 99212 ==

== ENCOUNTER → 2025-02-08 23:59 | Outpatient (BNV) | payer MEDICARE, SELFPAY | PROVIDERS: PCP Internal Medicine; Visit Provider Internal Medicine | DX: I69.298 Other sequelae of other nontraumatic intracranial hemorrhage (principal); I10 Essential (primary) hypertension | CPT/HCPCS: G0180 ==